=== PATIENT | female | born 1985 | race African-American/Black ===

== ENCOUNTER 2024-01-19 09:37 | Outpatient (AMB) | payer OTHER, MEDICAID, SELFPAY ==
--- NOTE | 2024-01-19 09:49 | HO.SPINEOV ---
Intake Visit Reasons: SI Joint Pain Intake Note: Ms. Mohan is here today c/o Left sided back and leg pain. 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 HPI: This 38-year-old female developed left-sided back pain in 2006. This progressed to a severe left-sided pain over the left SI joint that can radiate into her left leg into the ankle. She received many epidural steroid injections without ineffective. She did have an SI joint injection that provided 80% relief for 1 month. An SI joint belt gives no resolution of her pain. She denies weakness or numbness. She is unable to sit or drive a car due to pain. She is only able to lay on the right side in her bed. 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 SI joint provocative tests are positive on the left side. Straight leg raise produces pain on the left side of her back. No motor or sensory deficits. Radiological Studies: MRI of the lumbar spine done at [facility] shows mild degenerative disc disease L4-5 and L5-S1 without nerve root compression. Impression/Plan: This patient's clinical picture is compatible with left SI joint dysfunction. She has failed all forms of conservative treatments and is impaired by the symptoms. Therefore I offered her a left SI joint fusion. I discussed the medial to lateral approach and she wants to proceed. She will be scheduled accordingly. Thank you for allowing me to participate in your patients care. total time spent was 50 minutes in counseling ,coordination of plan, personal review of imaging, surgical decision making and subsequent plan Arpan Viera MD, PhD [facility] Trained Neurosurgeon Director, [facility] Coding Level of Care Code New Pt Level 4 (67356) Diagnoses Sacroiliac joint dysfunction of left side M53.3
== END 2024-01-19 10:33 | disposition home or self-care (01) ==
PROVIDERS: PCP Internal Medicine; Referring Provider Physician Assistant; Visit Provider Neurological Surgery
DX: M53.3 Sacrococcygeal disorders, not elsewhere classified (principal)
CPT/HCPCS: 99204

== ENCOUNTER → 2024-01-19 09:37 | Outpatient (BNVA) | payer OTHER, MEDICAID, SELFPAY | PROVIDERS: PCP Internal Medicine; Visit Provider Neurological Surgery ==

== ENCOUNTER 2024-03-13 14:02 | Outpatient (AMB) | payer OTHER, MEDICAID, SELFPAY ==
--- NOTE | 2024-03-13 14:36 | A.SPINEOV_ITS ---
Intake Visit Reasons: f/up radiating pain Intake Note: Mr. Mohan is here to f/u on low back pain. Internal Medicine Hospitalist Required: No Allergies No Known Allergies Allergy (Verified 01/19/24 09:50) Assessment & Plan Assessment & Plan (1) Sacroiliac joint dysfunction of left side: Code(s): M53.3 - Sacrococcygeal disorders, not elsewhere classified Category: Medical Plan Beatris comes in today for a subsequent evaluation after having her left-sided SI joint fusion canceled due to insurance denial. She was seen in clinic today and reports continued worsening left SI joint pain. She reports being in agony throughout the day and having significant restriction of her activities of daily living as a result of this pain. To clarify she does not have a radicular pain, but has a pain that is more well isolated to the left SI joint, which may extend toward the hip / thigh but does not radiate in a radicular manner. She is justifiably upset after being denied for the surgery which was indicated after evaluation by our attending neurosurgeon Dr. Viera who is the spine [facility] trained director of neurosurgery at our facility. On examination today she has notable difficulty with ambulation predominantly favoring the right side. She has (+) left sided Aguilar finger test, (+) left sided gaenslens test, (+) left sided Sen's, (+) left sided SI joint compression test. We will attempt for re-admission after Beatris's evaluation today. If this office note does reach the approving insurance company, I would encouraged them to schedule a peer to peer with an actual neurosurgeon or spine surgeon if they would like to challenge our submission for this surgery and once again deny this patient for a surgery that will undoubtedly provide her with much needed relief. Inocente Viera MD,PhD [facility] Coding Level of Care Code Est Pt Level 2 (35034) Diagnoses Sacroiliac joint dysfunction of left side M53.3
== END 2024-03-13 15:02 | disposition home or self-care (01) ==
LOC: HO.HNS 14:03
PROVIDERS: PCP Internal Medicine; Visit Provider Physician Assistant
DX: M53.3 Sacrococcygeal disorders, not elsewhere classified (principal)
CPT/HCPCS: 99212

== ENCOUNTER → 2024-03-13 14:02 | Outpatient (BNVA) | payer OTHER, MEDICAID, SELFPAY | PROVIDERS: PCP Internal Medicine; Visit Provider Physician Assistant ==

== ENCOUNTER 2024-03-25 08:45 | Outpatient (AMB) | payer OTHER, MEDICAID, SELFPAY ==
--- NOTE | 2024-03-25 09:24 | HO.SPINEOV ---
Intake Visit Reasons: MRI f/up Intake Note: Ms. Mohan is here today to F/u on the results of her MRI. 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 We reviewed her MRI imaging during this visit which shows a generally unremarkable MRI. She does have a slight disc bulge at L5-S1 which is causing a little to no foraminal or central canal stenosis. Generally speaking it is an unremarkable lumbar MRI. The patient reports that she recently received insurance approval in the mail for her upcoming left SI joint fusion surgery. She is very excited about this and we discussed this as well. All of her questions were answered to the best of my ability. Beatris was given risk and benefits of surgery including but not limited to infection, hematoma, nerve injury, durotomy, weakness, bowel/bladder injury, persistent pain, as well as the option to continue with conservative treatment and patient wishes to proceed with surgery. They are aware they should stop NSAIDs 7 days prior to surgery. All questions were answered to the best of our ability. If there is anything about this patients medical history that we have overlooked or concerns you have about us proceeding with surgery we would appreciate any input you can offer. Inocente Viera MD,PhD [facility] Coding Level of Care Code Global (23170) Diagnoses Sacroiliac joint dysfunction of left side M53.3
== END 2024-03-25 09:44 | disposition home or self-care (01) ==
PROVIDERS: PCP Internal Medicine; Visit Provider Physician Assistant
DX: M53.3 Sacrococcygeal disorders, not elsewhere classified (principal)
CPT/HCPCS: 99213

== ENCOUNTER 2024-04-25 08:24 | Day surgery (SDC) | payer OTHER, MEDICAID, SELFPAY ==
[2024-04-22 15:24] VITALS: BMI 29.7
[2024-04-25] VITALS (11 sets, daily range): BP systolic 118–133; BP diastolic 60–84; PULSE 70–103; RESP 14–16; TEMP 36.1–36.9; O2SAT 97–100; BMI 28.0
[2024-04-25 09:11] LABS: UPreg QC Valid YES; Urine Pregnancy NEGATIVE (NEGATIVE)
--- NOTE | 2024-04-25 09:28 | P.CONAN_ITS ---
[facility] Active Problems Active Problems: All Active Problems Sacroiliac joint dysfunction of left side (Acute) Past Medical History Medical History DDD (degenerative disc disease), lumbosacral Depression Orthostatic hypotension Palpitations GERD (gastroesophageal reflux disease) Sacroiliac joint dysfunction of left side Functional capacity: independent ambulation Patient : No Family History Family history of problems with anesthesia: No Surgical History Surgical History Hx of wisdom tooth extraction Hx of section Hx of gastric bypass Social History Social History Are you a primary healthcare risk control consultant to a significant other at home: No Do you presently have visiting nurse or other home services: No Patient Tobacco Use Status: Never used Tobacco Use of substances other than those prescribed or required for medical reasons: No Have you been hit, kicked, punched, or otherwise hurt by someone within the past year? If so, by whom?: No Advance Directives: No Advance Directives Information Provided: Yes Recently lost weight without trying: No Nutrition Risks: No Nutritional Risk Patient : No Meds Allergies Allergy/AdvReac Type Severity Reaction Status Date / Time No Known Allergies Allergy Verified 04/25/24 09:21 Active Medications: Current Medications Lactated Ringer's (Lr) 1,000 mls @ 80 mls/hr IVCONT .[id number] [facility] Home Medications ?Medication ?Instructions ?Recorded ?Confirmed ?Last Taken ?Type acetaminophen 500 mg tablet 1,000 mg PO Q8H 04/22/24 04/22/24 Unknown History omeprazole 20 mg capsule,delayed 20 mg PO DAILY 04/22/24 04/22/24 Unknown History release sertraline 25 mg tablet 25 mg PO DAILY 04/22/24 04/22/24 Unknown History simethicone 80 mg chewable tablet 80 mg PO Q6H PRN gas pains 04/22/24 04/22/24 Unknown History gabapentin 400 mg capsule 400 mg PO TID 04/25/24 04/25/24 Unknown History Exam Height,Weight and Vital Signs: Height 5 ft 4 in Weight 73.936 kg Pertinent Lab Results Pertinent Lab Results: Laboratory Tests 04/25/24 09:05 Urine Test NEGATIVE Assessment and Plan Final Anesthetic Review Family History of Problems with Anesthesia: No
[2024-04-25] MEDS: Lactated Ringers 1,000 ML 80 ML IVCONT (09:32)
[2024-04-25] MEDS: Gabapentin 300 MG CAPSULE PO (09:32)
[2024-04-25] MEDS: methocarbamoL 750 MG TABLET PO (09:32)
--- NOTE | 2024-04-25 09:58 | MHC.SHP ---
Pre-Procedural Eval Section A - 24 Hr Update-Section A only Date of Service: 04/25/24 The patient is an INPATIENT: No Section B - Complete if H&P > 30 days Chief Complaint: Sacrococcygeal disorders, not elsewhere classified Details of Present Illness: Left SI joint pain Allergies: Allergies Allergy/AdvReac Type Severity Reaction Status Date / Time No Known Allergies Allergy Verified 04/25/24 09:21 Review of Systems Sugical H&P ROS: Negative: Constitution, Cardiovascular, Respiratory, Neurological, Psychiatric, Hem-Onc, Allergic/Immunologic, Gastrointestinal, Genitourinary, Musculoskeletal, Integumentary, Endocrine and Eyes/Ears/Nose/Throat Exam Surgical H&P Exam: Normal: HEENT, Normal: Heart, Normal: Lungs, Normal: Extremities, Normal: Abdomen, Normal: Skin and Normal: Neurological (Awake, alert) Plan Diagnosis/Plan: Unchanged I have reviewed the history and physical and performed a pertinent physical examination on my patient. No changes have occurred unless specified. Left SI joint fusion Time Spent With Patient Time: Total time managing care of this patient today ____ minutes.
--- NOTE | 2024-04-25 12:21 | P.DS_ITS ---
DS: Providers Provider Date of Service: 04/25/24 Primary care physician: Azeem Humphrey III, MD DS: Summary Time Attestation Discharge Coordination Time (in mins): 15 Quality: Safe Use of Opioids Does Pt have an Active Cancer Diagnosis on the Problem List?: No Quality: Stroke Does the patient have a stroke diagnosis?: No Physical Exam Vital Signs: Vital Signs: Last Vital Signs Temp 98.4 F 04/25/24 10:39 Pulse 85 04/25/24 10:39 Resp 14 04/25/24 10:39 BP 133/74 04/25/24 10:39 Pulse Ox 100 04/25/24 10:39 O2 Del Method Room Air 04/25/24 10:39 BMI result Body Mass Index 28.0 DS: Data Data Completed and Pending Labs on day of discharge: Laboratory Results - last 24 hr 04/25/24 09:05 Urine Test NEGATIVE Discharge Plan Discharge Patient Disposition: Home, Self-Care Referrals: Azeem Humphrey III, MD [Primary Care Provider] - 1 Week Discharge Medications: New oxycodone 5 mg tablet 5 mg PO Q6H PRN (Reason: pain) Qty: 30 0RF Rx Instructions: Partial Fill upon patient request. Continued acetaminophen 500 mg tablet 1,000 mg PO Q8H sertraline 25 mg tablet 25 mg PO DAILY omeprazole 20 mg capsule,delayed release(DR/EC) 20 mg PO DAILY simethicone 80 mg tablet,chewable 80 mg PO Q6H PRN (Reason: gas pains) gabapentin 400 mg capsule 400 mg PO TID Discharge Orders: Discharge Order (Routine); Ordered 04/25/24 Ordered By: Inocente Fritz Diet: Advance to usual diet Activity on Discharge: As tolerated Activity Restrictions/Additional Instructions: After your spinal surgery we ask you to observe the following restrictions/guidelines: Activity: It is normal to feel some discomfort as you increase your activity, but that will improve with time. We ask you avoid heavy lifting or acitivities that cause pain. As a general rule, 8lbs is a safe limit for lifting right after surgery. Walk as much as you feel comfortable but not to exhaustion. You will feel extra tired the first few days after surgery. Stay well hydrated. It is OK to walk up and down stairs You may return to driving when you are off narcotics (such as vicodin, oxycodone, dilaudid, etc), and you are back to normal functional capacity. If you have any concerns please check with office before driving. Return to work is specific to each patient and each surgery, so please speak with your doctor/PA at first follow up. Please bring paperwork such as FMLA at that time if you need it filled out. Medications: We recommend you take 1,000mg Tylenol every 8 hours for the first few weeks after surgery, if you do not have any liver issues and can tolerate this medication. Do not exceed 4,000mg daily. We will give you a short supply of narcotics after surgery (usually one weeks worth). If you need more please call the office but do not use more than prescribed. You will need to give our office 48 hours notice if you need narcotics refilled and we do not fill narcotics on weekends or evenings. If you are on a narcotic, it is a good idea to take a stool softener such as colace or senna to avoid constipation If you take blood thinner such as aspirin, Plavix, Coumadin, Effient, Eliquis etc for conditions such as Afib, DVT, Pulmonary embolus, coronary disease, stents etc please speak with your surgeon about specific details as to when you can resume these medications. You can resume NSAIDs on post op day 1 (eg: Motrin, Naproxen, etc). Follow up: Please call the office, , after surgery to arrange a 3 week follow up for wound check. Wound Care: You may remove your dressing on the first day after surgery. ?You may ?leave open to air. Please do not remove the steri strips underneath. they will fall off on their own in one week. IT IS NORMAL FOR THE WOUND TO OOZE OR BE BLOODY FOR A FEW DAYS AFTER SURGERY. ?IF THIS HAPPENS JUST PLACE NEW DRESSING OVER IT TO AVOID STAINING CLOTHES. You may shower on post op day # 1 We ask that you do not let the water soak the wound. If it does get wet, just towel dry lightly. Please do not scrub your incision or place any type of chemical/ointment on the wound. No tub baths, pools or jacuzzis for one month. If you have any leaking or redness from your wound, or fevers, please call the office. Print Language: Mongolian
--- NOTE | 2024-04-25 12:28 | W.PM.OPN ---
Operative Note Operative Note Date of Service: 04/25/24 Narrative: Preoperative diagnosis: Left sacroiliitis Postoperative diagnosis: Same Operative procedure: Left sacroiliac joint fusion with 1 allograft implant Surgeon: Arpan Viera MD, PhD Parachute Cushion Installer: Matt Hernandez PA-C Anesthesia: General Description of procedure: The patient is suffering from left SI joint dysfunction refractory to nonoperative management. The patient has tried and failed all forms of conservative manage med except for an excellent short-term response to a sacroiliac joint injection. The sacroiliac joint was confirmed to be the pain generator after repeated pain blocks. The patient was offered surgical treatment with fixation and arthrodesis of the SI joint. The patient was brought to the operating room and endotracheally intubated. The patient was turned in a prone position on Shaheen spine table. Prepping and draping was done followed by a time-out. A C-arm was alternately positioned for lateral, oblique oblique and pelvic inlet and outlet projections througout the procedure. Skin markings were made for the anticipated position of the implant. A 2.5 cm longitudinal skin incision was made. A guide pin was inserted in an outlet oblique image for guidance follow-up insertion of dilator and working cannula. This was secured by placing an anchor pin into the ilium. Consideration was taken to cut channels utilizing a series of drills for decortication and internal fixation device placement. The implant was inserted such that it passed through the ilium, across the sacroiliac joint and into the sacrum, thus transfixing the sacroiliac joint. Proper positioning was confirmed on lateral fluoroscopy. The implant was packed with autologous bone collected from remain of the sacrum and ilium. Additional graft material was inserted into the channel void following the implant. The instruments were withdrawn. Upon completion, final images were obtained that showed a satisfactory position of the implant. Hemostasis was done. The incision was closed with an 0 Vicryl to fashion a 3-0 Vicryl subdermal layer after injecting Marcaine. Dermabond was used to approximate the surgeon. All sponge and needle counts were correct. Patient was extubated and transported in a stable condition to recovery room. Estimated blood loss: 40 mL Complications: None Disposition: Discharge to home
[2024-04-25] MEDS: oxyCODONE HCl Immed Release 5 MG TABLET PO (13:48)
[2024-04-25] MEDS: fentaNYL citrate/PF 100 MCG/2 ML VIAL 25 MCG IVPUSH (13:49)
== END 2024-04-25 14:49 | disposition home or self-care (01) ==
PROVIDERS: Anesthesiology; PCP Internal Medicine; Visit Provider Neurological Surgery
PROC: (CPT 27278; principal; 2024-04-25 11:30)
DX: M46.1 Sacroiliitis, not elsewhere classified (principal); M53.3 Sacrococcygeal disorders, not elsewhere classified; M51.372 Other intervertebral disc degeneration, lumbosacral region with discogenic back pain and lower extremity pain; M54.50 Low back pain, unspecified; M79.605 Pain in left leg; I95.1 Orthostatic hypotension; F32.A Depression, unspecified; Z79.899 Other long term (current) drug therapy; Z98.84 Bariatric surgery status
CPT/HCPCS: 27278; 81025; C1713; J0131; J0690; J1100; J1596; J1885; J2003; J2250; J2371; J2405; J2704; J3010; L8699

== ENCOUNTER → 2024-04-25 08:24 | Outpatient (BNV) | payer OTHER, MEDICAID, SELFPAY | PROVIDERS: PCP Internal Medicine; Visit Provider Physician Assistant | DX: M46.1 Sacroiliitis, not elsewhere classified (principal) | CPT/HCPCS: 27279; 99499 ==

== ENCOUNTER 2024-05-20 09:10 | Outpatient (AMB) | payer OTHER, MEDICAID, SELFPAY ==
--- NOTE | 2024-05-20 09:17 | A.SPINEOV_ITS ---
Intake Visit Reasons: 1st post op Intake Note: Ms. Mohan is here today for her 1st post op. Biologics Specialist Required: No Allergies No Known Allergies Allergy (Verified 07/01/24 11:50) Assessment & Plan Assessment & Plan (1) Sacroiliac joint dysfunction of left side: Code(s): M53.3 - Sacrococcygeal disorders, not elsewhere classified Category: Medical Plan Procedure: left SI joint fusion Beatris comes in today for her 1st postoperative visit. To recap she was previously seen in clinic for severe left-sided pain over the left SI joint that can radiate into her left leg into the ankle. She reports the pain has significantly reduced since her surgery. She is still having some trouble with full weight-bearing on the left side, and continues to use her cane intermittently but states her symptoms are overall much better than they were prior to surgery. She has been completing her ADLs without issue, but does still have some trouble completing stairs. We discussed the postoperative healing course, and I answered all of her questions to the best of my ability. No new neurological deficits. The patient ambulates well with the assistance of a cane. Her posterior incision site appears closed, well healing with no signs of drainage. There is still some edema underneath the incision site, but this is most likely due to postoperative inflammation. I believe lower we will begin feeling better as the weeks progress. I would like to see her again in 6 weeks and obtain a set of x-rays to review with her. Inocente Viera MD,PhD [facility] Orders: Orders XR sacroiliac joint 1-2V 05/20/24 M53.3 - Sacrococcygeal disorders, not elsewhere classified Coding Level of Care Code Global (52606) Diagnoses Sacroiliac joint dysfunction of left side M53.3
== END 2024-05-20 09:43 | disposition home or self-care (01) ==
PROVIDERS: PCP Internal Medicine; Visit Provider Physician Assistant
DX: M53.3 Sacrococcygeal disorders, not elsewhere classified (principal)
CPT/HCPCS: 99024

== ENCOUNTER 2024-05-20 09:10 | Outpatient (REF) | payer OTHER, MEDICAID, SELFPAY | END 2024-05-20 09:11 | disposition home or self-care (01) | LOC: HO.HOSX 09:10 | PROVIDERS: PCP Internal Medicine; Visit Provider Physician Assistant | DX: Z13.89 Encounter for screening for other disorder (principal) ==

== ENCOUNTER 2024-07-01 11:31 | Outpatient (AMB) | payer OTHER, MEDICAID, SELFPAY ==
--- NOTE | 2024-07-01 11:06 | HO.SPINEOV ---
Intake Visit Reasons: 2nd post op with Xray Intake Note: Ms. Mohan is here today for her 2nd post op with x-rays. 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 Viera. She reports she was doing very well during the interval since our last visit, but unfortunately in the last couple of weeks she has developed fairly significant left knee pain, at times will feel her knee completely lock up and then pop when she tries to straighten it. Because of this she has been ambulating with the assistance of a cane. She is also having quite a bit of centralized low back pain. She reports that this pain is different than the pain she had prior to her SI joint fusion surgery. Unfortunately, her x-ray imaging done today is not loading in the computer. I will review it as soon as I am able to an update this note accordingly. No new neurological deficits. The patient ambulates well and rises from a seated position without difficulty. Her posterior incision site is closed and well healed. I believe that Beatris is likely suffering from some kind of issue with her left knee, and due to her difference in ambulation as a result of this she may be developing axial low back pain. Importantly, she no longer has pain near the SI joint area. I will send her a referral for orthopedics to evaluate her left knee. If she can correct her gait, her low back pain may resolve on its own. Inocente Viera MD,PhD [facility] Orders: Referrals Orthopedics Referral M25.562 - Pain in left knee Coding Level of Care Code Global (51364) Diagnoses Sacroiliac joint dysfunction of left side M53.3
--- OUTSIDE RECORDS SUMMARY | 2024-07-01 13:17 | XMS_ITS | Clinical Summary ---
Author Organization [facility] Address [address] [place] [address] Phone Care Team Providers Care Manager Meat Name Role Phone Azeem Humhprey MD Primary Care Provider [phone] Allergies No known active allergies Medications ondansetron ODT (ZOFRAN-ODT) 4 mg disintegrating tablet DISSOLVE 1 TABLET UNDER THE TONGUE EVERY 8 HOURS NEEDED FOR NAUSEA FOR UP TO 7 DAYS. 4 Active simethicone (MYLICON) 80 mg chewable tablet Take 1 Tablet by mouth every 6 hours as needed for Flatulence for up to 30 days. 4 Active acetaminophen (TYLENOL) 500 mg tablet Take 2 Tablets by mouth every 8 hours for 30 days. 4 Active blood sugar diagnostic (FreeStyle Lite Strips) test strip To check BS once daily E11.9 4 Active omeprazole OTC (PriLOSEC OTC) 20 mg EC tablet Take 1 Tablet by mouth 3 times daily. Active gabapentin (NEURONTIN) 300 mg capsule Take 1 Capsule by mouth 2 times daily. Active omeprazole (PriLOSEC) [address] capsule TAKE 1 CAPSULE BY MOUTH DAILY FOR 360 DAYS. 90 capsule 1 4 Active ergocalciferol (VITAMIN D-2) 1,250 mcg (50,000 unit) capsule Take 1 capsule (50,000 Units total) by mouth 1 (one) time per week. 4 each 11 4 025 Active sertraline (ZOLOFT) 25 mg tablet TAKE 1 TABLET BY MOUTH EVERY DAY 90 tablet 1 4 Active diclofenac (VOLTAREN) 1 % topical gel APPLY 1 G TOPICALLY 4 TIMES DAILY NEEDED (PAIN). 100 g 3 5 Active Active Problems Problem Noted Date Diagnosed Date Bariatric surgery status 03/26/2024 Overweight (BMI 25.0-29.9) 03/26/2024 Orthostatic hypotension 12/19/2023 Overview (02/13/2024): Orthostatic hypotension Palpitations 12/19/2023 Overview (02/13/2024): Palpitations Sacroiliitis 12/19/2023 Class 1 obesity with body ma ss index (BMI) of 31.0 to 31.9 in adult 04/18/2023 DDD (degenerative disc disease), lumbosacral 04/2017 Overview (02/13/2024): L4-5, L5-S1 Depression 08/17/2016 Hidradenitis suppurativa 08/17/2016 Myofascial muscle pain 08/17/2016 Encounters Date Type Department Care Team Description 04/09/2024 8:30 AM EST Office Visit Adult Medicine [address] [phone] Noah Rose PA Routine history and physical examination of adult (Primary Dx); Type 2 diabetes mellitus without complication, without long-term current use of insulin (CMS/HCC); Sacroiliitis (CMS/HCC); Need for tetanus, diphtheria, and acellular pertussis (Tdap) vaccine; Depression, unspecified depression type; Gastroesophageal reflux disease, unspecified whether esophagitis present; S/P bariatric surgery from Last 3 Months Immunizations Name Administration Dates Next Due DTP 03/22/1986, 5,02/20/1984,11/19 Hepatitis B (Wqdseha-F-Pbybw , Recombivax HB-Adult) 19yo and older 04/12/2011 MMR, measles mumps and rubel la Live (Priorix; M-M-R II) 12mo and older 11/01/1984 Meningococcal MCV4P 04/12/2011 Moderna (age 6mo & older) Bi valent, COVID-19, 0.5 mL or 0.25 mL dosage 04/19/2022 Moderna SARS-CoV-2 COVID-19, mRNA, LNP-S, preservative free 12/26/2021,01/23/2021,12/26/2020 OPV 03/22/1986, 5,02/20/1984,11/19 PPD Test 08/20/1984 Tdap Tetanus diptheria acell ular pertussis (Boostrix; Adacel) 7yo and older 04/09/2024,12/25/2007 Surgical History Surgery Date Site/Laterality Comments WISDOM TOOTH EXTRACTION 2013 Bilateral PROCEDURE: HISTORICAL WISDOM TEETH EXTRACTION; COMMENT: x4, no excess bleeding SECTION PROCEDURE: HISTORICAL DELIVERY Medical History Medical History Date Comments Depression 08/17/2016 DX:Depression Hidradenitis suppurativa 08/17/2016 DX:Hidr adenitis suppurativa; COMMENT: Dr. Matheus Smith Myofacial muscle pain 08/17/2016 DX:Myofaci al muscle pain DDD (degenerative disc disea se), lumbosacral 08/17/2016 DX:DDD (degenerative disc di sease), lumbosacral; COMMENT: L4-5, L5-S1 Arthritis DX:Arthritis Anxiety and depression DX:Anxiet y and depression DM (diabetes mellitus) ([facility]) DX:DM (diabetes mellitus) ([facility]) Difficulty balancing DX:Difficul ty balancing Loss of sensation DX:Loss of sen sation Family History Medical History Relation Name Comments Hypertension Father Hypertension Mother Prostate cancer Uncle maternal - m ets to bone Relation Name Status Comments Brother Alive 1 Father Alive Mother Alive Sister Alive 4 Uncle Social History Tobacco Use Types Packs/Day Years Used Date Smoking Tobacco: Never Smokeless Tobacco: Never Tobacco Cessation:Counseling Given: Not Answered Alcohol Use Standard Drinks/Week Comments Yes 0 (1 standard drink = 0.6 oz pur e alcohol) social Housing Instability Answer Date Recorde d Are you worried that in the next 2 months you may not have stable housing? No 04/04/2024 Food Access & Nutrition Answer Date Rec orded Do you have access to a vari ety of food including fruits and vegetables? No 04/04/2024 Health Literacy Answer Date Recorded How often do you need to hav e someone help you when you read instructions, pamphlets, or other written material from your doctor or pharmacy? Never 04/04/2024 Caregiver: How often do you need to have someone help you when you read instructions, pamphlets, or other written material from your doctor or pharmacy? Not on file 04/04/2024 Financial Risk Answer Date Recorded How hard is it for you to pa y for the very basics like food, housing, medical care, and air conditioning / heating? Very hard 04/04/2024 Transportation Answer Date Recorded Has the lack of transportati on kept you from meetings, work, or from getting things needed for daily living? No Has the lack of transportati on kept you from medical appointments or from getting medications? No 04/04/2024 Social Isolation Answer Date Recorded How often do you feel lonely or isolated from th ose around you? Often 04/04/2024 Food Risk Answer Date Recorded Within the past 12 months we worried whether our food would run out before we got money to buy more. Never true 04/04/2024 Within the past 12 months th e food we bought just didn't last and we didn't have money to get more. Never true 04/04/2024 Dependent Care Answer Date Recorded Do you need help finding or paying for care for your loved ones. For example, child care aide or elderly care for an older adult? No 04/04/2024 Education Answer Date Recorded Do you think completing more education or training, like finishing a GED, going to college, or learning a trade, would be helpful for you? N/A 04/04/2024 Employment and Income Answer Date Recor ded During the last four weeks, have you been actively looking for work? No 04/04/2024 Living Situation Answer Date Recorded What is your living situation? 1 06/04/2023 Comments No Sex and Gender Information Value Date Recorded Sex Assigned at Not on file Legal Sex Female 4:43 AM EST Gender Identity Not on file Sexual Orientation Not on file Obstetrics History Last Filed Vital Signs Vital Sign Reading Time Taken Comments Blood Pressure 122/76 04/09/2024 8:11 AM EST Pulse 86 04/09/2024 8:11 AM EST Temperature 36.3 ??C (97.4 ??F) 04/09/2024 8:11 AM ES T Respiratory Rate 20 03/19/2024 12:05 PM EST Oxygen Saturation 97% 04/09/2024 8:11 AM EST Inhaled Oxygen Concentration - - Weight 75.9 kg (167 lb 6.4 oz) 04/09/2024 8:11 A M EST Height 162.6 cm (5' 4.02 ) 04/09/2024 8:11 AM ES T Body Mass Index 28.72 04/09/2024 8:11 AM EST Plan of Treatment Upcoming Encounters Date Type Department Care Team (Late st Contact Info) Description 07/02/2024 8:45 AM EST Office Visit Bariatric Surgery - [place] [address] [phone] Dee Dee Tian PA [address] [address] 08/27/2024 10:55 AM EDT Appointment Radiology Department - [address] [phone] 10/11/2024 9:45 AM EDT Office Visit Adult Medicine [address] [phone] Azeem Humphrey MD [address] [place] [phone] Health Maintenance Due Date Last Done Comments Diabetes: Annual Foot Exam 07/11/1993 Diabetes: Annual Retina Eye Exam 07/11/1993 Pneumococcal Vaccine: Pediatrics (0 to 5 Years) and At-Risk Patients (6 to 64 Years) (1 of 2 - PCV) 07/11/2002 Hepatitis B Vaccines (2 of 3 - 19+ 3-dose series) 05/10/2011 04/12/2011 HIV Screening 04/10/2022 Hepatitis C Screening 04/10/2022 COVID-19 Vaccine ( season) 2024 04/19/2022, 12/26/2021, 01/23/2021, Additional history exists Diabetes: Annual Urine Albumin-Creatinine Ratio (uACR) 02/15/2024 08/15/2022 Diabetes: Blood Sugar Control Test (HGBA1C) 11/01/2024 05/03/2024, 12/19/2023, 12/19/2023 Diabetes: Annual GFR (Glomerular Filtration Rate) 03/26/2025 03/26/2024, 12/19/2023, 12/19/2023 Depression Screening 04/04/2025 04/04/2024 Social Influencers of Health Screening 04/04/2025 04/04/2024 Cervical Cancer Screening: Pap Smear 08/02/2025 08/02/2022 Breast Cancer Screening 08/22/2025 08/23/2023 Cholesterol Screening (Lipid Panel) 05/03/2029 05/03/2024, 03/02/2023 DTaP,Tdap,and Td Vaccines (7 - Td or Tdap) 04/09/2034 04/09/2024, 12/25/2007, 03/22/1986, Additional history exists MMR Vaccines Completed 11/01/1984 IPV Vaccines Completed 03/22/1986, 06/08, 02/20/1984, Additional history exists Meningococcal ACWY Vaccine Aged Out 04/12/2011 N o longer eligible based on patient's age to complete this topic HIB Vaccines Aged Out No longer eligi ble based on patient's age to complete this topic HPV Vaccines Aged Out No longer eligi ble based on patient's age to complete this topic Hepatitis A Vaccines Aged Out No long er eligible based on patient's age to complete this topic Influenza Vaccine Discontinued Meningococcal B Vacine Aged Out No lo nger eligible based on patient's age to complete this topic RSV Immunization Patients Under 20 months Aged Out No longer eligible based on patient's age to complete this topic Varicella Vaccines Aged Out No longer eligible based on patient's age to complete this topic Procedures Procedure Name Priority Date/Time Associated Diagnosis Comments HEMOGLOBIN A1C Routine 05/03/2024 8:09 AM EST Type 2 diabetes mellitus without complication, without long-term current use of insulin ([facility]) LIPID PANEL WITH REFLEX TO DIRECT LDL Routine 05/03/2024 8:09 AM EST Routine history and physical examination of adult COMPLETE BLOOD COUNT Routine 05/03/2024 8:09 AM EST Routine history and physical examination of adult COMPREHENSIVE METABOLIC PANEL Routine 03/26/2024 9:01 AM EST Overweight (BMI 25.0-29.9) Bariatric surgery status MADDY SCREENING DIGITAL Routine 08/23/2023 2:25 PM EDT Encounter for screening mammogram for malignant neoplasm of breast URINE ALBUMIN CREATININE RATIO Routine 08/15/2022 PAP SMEAR Routine 08/02/2022 from Last 3 Months or Most Recently Relevant to Health Maintenance Results * Lipid panel with reflex to direct LDL (05/03/2024 8:09 AM EST) Cholesterol 172 0 - 200 mg/dL LAB CHEMISTRY METHOD 05/03/2024 10:16 AM [facility] Triglycerides 90 0 - 150 mg/dL LAB CHEMISTRY METHOD 05/03/2024 10:16 AM [facility] HDL 59 >=40 mg/dL LAB CHEMISTRY METHOD 05/03/2024 10:16 AM [facility] LDL Calculated 95 0 - 100 mg/dL LAB CHEMISTRY METHOD 05/03/2024 10:16 AM [facility] VLDL Cholesterol Olvin 18 mg/dL LAB CHEMISTRY METHOD 05/03/2024 10:16 AM [facility] Non HDL Chol. (LDL+VLDL) 113 <145 mg/dL LAB CHEMISTRY METHOD 05/03/2024 10:16 AM [facility] Chol/HDL Ratio 2.9 0.0 - 4.4 LAB CHEMISTRY METHOD 05/03/2024 10:16 AM [facility] Blood Venous blood specimen / Unknown Venipuncture / Unknown 05/03/2024 8:09 AM EST 05/03/2024 8:09 AM EST us Noah CARRERA LAB BLOOD ORDERABLES Fi nal Result [facility] [address] [place] [address], [place] [phone] * Complete blood count (05/03/2024 8:09 AM EST) WBC 8.3 4.8 - 10.8 K/mcL LAB HEMETOLOGY METHOD 05/03/2024 10:11 AM [facility] RBC 4.80 3.80 - 4.80 M/mcL LAB HEMETOLOGY METHOD 05/03/2024 10:11 AM [facility] Hemoglobin 14.5 11.5 - 16.0 g/dL LAB HEMETOLOGY METHOD 05/03/2024 10:11 AM [facility] Hematocrit 45.2 35.0 - 47.0 % LAB HEMETOLOGY METHOD 05/03/2024 10:11 AM [facility] MCV 95.0 79.0 - 98.0 FL LAB HEMETOLOGY METHOD 05/03/2024 10:11 AM [facility] MCH 30.5 27.0 - 32.0 pcg LAB HEMETOLOGY METHOD 05/03/2024 10:11 AM [facility] MCHC 32.1 32.0 - 37.0 g/dL LAB HEMETOLOGY METHOD 05/03/2024 10:11 AM [facility] RDW 13.1 11.0 - 15.0 % LAB HEMETOLOGY METHOD 05/03/2024 10:11 AM [facility] Platelets 289 130 - 400 K/mcL LAB HEMETOLOGY METHOD 05/03/2024 10:11 AM [facility] MPV 9.2 7.0 - 11.0 FL LAB HEMETOLOGY METHOD 05/03/2024 10:11 AM EST [facility] NRBC 0.0 <1.0 % LAB HEMETOLOGY METHOD 05/03/2024 10:11 AM EST [facility] NRBC Absolute 0.00 <0.10 K/mcL LAB HEMETOLOGY METHOD 05/03/2024 10:11 AM EST [facility] Blood Venous blood specimen / Unknown Venipuncture / Unknown 05/03/2024 8:09 AM EST 05/03/2024 8:09 AM EST Noah CARRERA LAB BLOOD ORDERABLES Fi nal Result Performing Organization Address City/[facility]/ZIP Co de Phone Number [facility] [address] [place] [address], [place] [phone] * Hemoglobin A1c (05/03/2024 8:09 AM EST) Pathologist [facility] Hemoglobin A1C 5.4 <6.5 % LAB CHEMISTRY METHOD 05/03/2024 12:26 PM EST [facility] Mean Bld Glu Estim. 108 mg/dL LAB CHEMISTRY METHOD 05/03/2024 12:26 PM EST [facility] Blood Venous blood specimen / Unknown Venipuncture / Unknown 05/03/2024 8:09 AM EST 05/03/2024 8:09 AM EST Noah CARRERA LAB BLOOD ORDERABLES Fi nal Result [facility] [address] [place] [address], [place] [phone] * Comprehensive metabolic panel (03/26/2024 9:01 AM EST) Sodium 142 133 - 145 mmol/L LAB CHEMISTRY METHOD 03/26/2024 11:02 AM EST [facility] Potassium 4.0 3.5 - 5.5 mmol/L LAB CHEMISTRY METHOD 03/26/2024 11:02 AM [facility] Chloride 110 96 - 110 mmol/L LAB CHEMISTRY METHOD 03/26/2024 11:02 AM [facility] CO2 26 21 - 32 mmol/L LAB CHEMISTRY METHOD 03/26/2024 11:02 AM [facility] Anion Gap 6 3 - 11 LAB CHEMISTRY METHOD 03/26/2024 11:02 AM [facility] Glucose 95 70 - 100 mg/dL LAB CHEMISTRY METHOD 03/26/2024 11:02 AM [facility] BUN 9 5 - 25 mg/dL LAB CHEMISTRY METHOD 03/26/2024 11:02 AM [facility] Creatinine 0.80 0.50 - 1.10 mg/dL LAB CHEMISTRY METHOD 03/26/2024 11:02 AM [facility] eGFR 96 >=60 mL/min/1. 73m2 LAB CHEMISTRY METHOD 03/26/2024 11:02 AM [facility] Comment:Calculation based on the??Chronic Kidney Disease Epidemiology Collaboration (CKD-EPI) equation refit??without adjustment for race. BUN/Creatinine Ratio 11.3 LAB CHEMISTRY METHOD 03/26/2024 11:02 AM [facility] Calcium 10.1 8.5 - 10.5 mg/dL LAB CHEMISTRY METHOD 03/26/2024 11:02 AM [facility] AST (SGOT) 10 10 - 42 unit/L LAB CHEMISTRY METHOD 03/26/2024 11:02 AM [facility] ALT (SGPT) 14 10 - 60 unit/L LAB CHEMISTRY METHOD 03/26/2024 11:02 AM [facility] Alkaline Phosphatase 88 42 - 121 unit/L LAB CHEMISTRY METHOD 03/26/2024 11:02 AM [facility] Total Protein 6.8 6.0 - 8.0 g/dL LAB CHEMISTRY METHOD 03/26/2024 11:02 AM EST [facility] Albumin 3.8 3.2 - 5.0 g/dL LAB CHEMISTRY METHOD 03/26/2024 11:02 AM EST [facility] Total Bilirubin 0.6 0.0 - 1.4 mg/dL LAB CHEMISTRY METHOD 03/26/2024 11:02 AM EST [facility] Blood Venous blood specimen / Unknown Venipuncture / Unknown 03/26/2024 9:01 AM EST 03/26/2024 9:01 AM EST us Dee Dee CARRERA LAB BLOOD ORDERABLES Final R esult [facility] ([facility]) [facility] [address] [place] [address], * MADDY SCREENING DIGITAL (08/23/2023 2:25 PM EDT) Anatomical Region Laterality Modality Mammography 08/23/2023 7:26 AM EDT Narrative 08/23/2023 2:[address] [facility] Diagnostic Imaging Department [address] [place] [address] Patient: ??JOHANA MOHAN ?/Age/Sex: 1985 - - F Unit#: ??[id number] ? Location/Status: ??SPDIMAM/REG CLI ? Mnemonic/Ordering Site: ??DIGSC/SPMAM Ordering Physician: ??TERENCE SINGLETON SOLUTION DESIGN ENGINEER [facility] Screening Digital - 08/23/23 - 745 Report Status:Signed EXAM: [facility] Screening Digital EXAM DATE AND TIME: 08/23/2023 7:48 AM HISTORY: ??Screening. Baseline exam. COMPARISON: ??No comparison imaging. TECHNIQUE: Bilateral digital breast tomosynthesis was performed in the CC and MLO projections. Computer aided detection with [employer]™ [employer] 3D 3.1 was employed. TISSUE DENSITY: a. The breasts are almost entirely fatty. FINDINGS: An 11 mm circumscribed, bilobed nodule is seen in the middle 2:00 position of the left breast, approximately 10 cm from the nipple, fairly close to the skin line. This may represent a lymph node. Targeted ultrasound is recommended for further assessment. No grouped microcalcifications or areas of architectural distortion are seen. The skin and vascularity are unremarkable. IMPRESSION: 1. 11 mm bilobed left breast nodule, for which targeted ultrasound is recommended. The patient will be called back. 2. No mammographic evidence of malignancy is seen in the right breast. BI-RADS: ??Category 0: Incomplete - Need Additional Imaging Evaluation RECOMMENDATION(S): 1: Ultrasound follow-up LEFT Dictating Physician: ??KACEY ZAFAR MD Electronically Signed by: ??KACEY ZAFAR MD Dic Date/Time: ??08/23/23 1423 Sign date/Time: ??08/23/23 1425 Procedure Note Kacey Zafar MD - 12/25/2023 [facility] Diagnostic Imaging Department [address] [place] [id number] Patient: JOHANA MOHAN./Age/Sex: 1985 - 38 - F Unit#: [id number] Location/Status: SPDIMAM/REG CLI Mnemonic/Ordering Site: [facility] Ordering Physician: TERENCE SINGLETON SOLUTION DESIGN ENGINEER [facility] Screening Digital - 08/23/23 - 0746 Report Status:Signed EXAM: [facility] Screening Digital EXAM DATE AND TIME: 08/23/2023 7:48 AM HISTORY: Screening. Baseline exam. COMPARISON: No comparison imaging. TECHNIQUE: Bilateral digital breast tomosynthesis was performed in the CCand MLO projections. Computer aided detection with [employer]™ [employer] 3D 3.1was employed. TISSUE DENSITY: a. The breasts are almost entirely fatty. FINDINGS: An 11 mm circumscribed, bilobed nodule is seen in the middle 2:00 positionof the left breast, approximately 10 cm from the nipple, fairly close to theskin line. This may represent a lymph node. Targeted ultrasound is recommendedfor further assessment. No grouped microcalcifications or areas of architectural distortion areseen. The skin and vascularity are unremarkable. IMPRESSION: 1. 11 mm bilobed left breast nodule, for which targeted ultrasound is recommended. The patient will be called back. 2. No mammographic evidence of malignancy is seen in the right breast. BI-RADS: Category 0: Incomplete - Need Additional Imaging Evaluation RECOMMENDATION(S): 1: Ultrasound follow-up LEFT Dictating Physician: KACEY ZAFAR MD Electronically Signed by: KACEY ZAFAR MD Dic Date/Time: 08/23/23 142 Sign date/Time: 08/23/23 142 us Patience Assobmo SOLUTION DESIGN ENGINEER IMG BI PROCEDURES Final Resu lt * HM Urine Albumin Creatinine Ratio (08/15/2022) Urine Albumin Creatinine Ratio Abstracted us Historical Provider HEALTH MAINTENANCE Final Result * Hm Pap Smear (08/02/2022) Pap smear No interpretation , Abstracted us Historical Provider HEALTH MAINTENANCE Final Result from Last 3 Months or Most Recently Relevant to Health Maintenance Insurance [facility] MEDICA[facility] - [place] Care Teams Manager Meat Relationship Specialty Start Date End Date Azeem Humphrey MD [address] [place] [phone] PCP - General Internal Medicine 03/14/24
== END 2024-07-01 12:09 | disposition home or self-care (01) ==
PROVIDERS: PCP Internal Medicine; Visit Provider Physician Assistant
DX: M53.3 Sacrococcygeal disorders, not elsewhere classified (principal)
CPT/HCPCS: 99024

== ENCOUNTER 2024-07-01 11:31 | Outpatient (REF) | payer OTHER, MEDICAID, SELFPAY ==
--- NOTE | ~2024-07-01 | XR_ITS ---
EXAMINATION: XR SACROILIAC JOINTS CLINICAL INFORMATION: M53.3 - Sacrococcygeal disorders, not elsewhere classified COMPARISON: None available. TECHNIQUE: 3 views of the sacroiliac joints FINDINGS: Sclerosis in the left and to a lesser extent right sacroiliac joints. No acute cortical disruption. There is a focal 1 cm calcification overlapping the upper left sacrum. XR/XR sacroiliac joint 1-2V IMPRESSION: No acute fracture. 1 cm calcification overlapping the left upper hemisacrum, unclear location. Electronically signed by: Siddharth Grace MD 07/02/2024 01:48 PM EST
== END 2024-07-01 11:32 | disposition home or self-care (01) ==
LOC: HO.HOSX 11:31
PROVIDERS: PCP Internal Medicine; Visit Provider Physician Assistant
DX: M53.3 Sacrococcygeal disorders, not elsewhere classified (principal)
CPT/HCPCS: 72200

== ENCOUNTER → 2024-07-01 11:40 | Outpatient (BNV) | payer OTHER, MEDICAID, SELFPAY | PROVIDERS: PCP Internal Medicine; Visit Provider Radiology Diagnostic Radiology | DX: M53.3 Sacrococcygeal disorders, not elsewhere classified (principal) | CPT/HCPCS: 72200 ==

== ENCOUNTER 2024-07-19 10:49 | Outpatient (AMB) | payer OTHER, MEDICAID, SELFPAY ==
--- NOTE | 2024-07-19 10:51 | A.SPINEOV_ITS ---
Intake Visit Reasons: LBP/R side leg pain Intake Note: Ms. Mohan is here today c/o right side Low back pain. Stock Checker Required: No Allergies No Known Allergies Allergy (Verified 07/01/24 11:50) Assessment & Plan Assessment & Plan (1) Lumbar radiculopathy: Code(s): M54.16 - Radiculopathy, lumbar region Category: Medical Plan Mrs Mohan came in today to discuss an issue that started about 2 weeks ago. She was doing well after surgery with the exception of some knee pain that she had developed. The knee pain was not related to the surgery but just happened to happen postoperatively so she was seen here about it. She is going to go to orthopedics to have that evaluated. Recently she has developed severe left leg pain starting in her left buttock going down the back of the left leg into the calf and the bottom of the foot. It does feel somewhat similar to the pain that she had before surgery. The pain had been gone for a number of months so she is not sure if it is exactly the same. She was started on some steroids and gabapentin. She has also been taking acetaminophen and nonsteroidal anti- inflammatories. The pain is quite uncomfortable when she is standing or walking and particularly bad at night. On exam she is uncomfortable, walking with a cane, positive straight leg raise at about 30 degrees. Decreased Achilles reflex on the left. Strength is normal. We discussed the possibility of getting an MRI to rule out a herniated disc which is high on the differential. However, with her insurance health [place], they will require 6 weeks of physical therapy before letting us obtain the MRI so I gave her a referral for that and told her to call me in about 4 weeks since the pain is still there we will order the MRI. Total amount of time spent in this visit was 20 minutes in discussion of symptoms, ordering imaging and subsequent plan of care Matt Viera MD,PhD [facility] Orders: Orders PT Evaluation and Treatment Today M54.16 - Radiculopathy, lumbar region Coding Level of Care Code Est Pt Level 3 (62103) Diagnoses Lumbar radiculopathy M54.16
--- OUTSIDE RECORDS SUMMARY | 2024-07-19 12:26 | XMS_ITS | Clinical Summary ---
Author Organization [facility] Address [address] [place] [address] Phone Care Team Providers Care Senior Rd Engineer Name Role Phone Azeem Humphrey MD Primary Care Provider Allergies No known active allergies Medications ondansetron [...] NEEDED (PAIN). 100 g 3 5 Active cyclobenzaprine (FLEXERIL) 5 mg tablet Take 1 tablet (5 mg total) by mouth 3 (three) times a day if needed for muscle spasms. Do not drive or operate machinery after taking this due to potential drowsiness. 30 tablet 5 025 Active predniSONE (DELTASONE) 20 mg tablet Take 3 tabs for 3 days, take 2 tabs for 3 days, take 1 tab for 3 days 18 tablet 5 Active Active Problems Problem Noted Date Diagnosed Date Bariatric surgery status 03/26/2024 Overweight (BMI 25.0-29.9) 03/26/2024 Orthostatic hypotension 12/19/2023 Overview (02/13/2024): Orthostatic hypotension Palpitations 12/19/2023 Overview (02/13/2024): Palpitations Sacroiliitis 12/19/2023 DDD (degenerative disc disease), lumbosacral 04/2017 Overview (02/13/2024): L4-5, L5-S1 Depression 08/17/2016 Hidradenitis suppurativa 08/17/2016 Myofascial muscle pain 08/17/2016 Resolved Problems Problem Noted Date Diagnosed Date Resolved Date Class 1 obesity with body ma ss index (BMI) of 31.0 to 31.9 in adult 04/18/2023 07/02/2024 Encounters Date Type Department Care Team Description 07/17/2024 11:00 AM EDT Office Visit Adult Medicine [address] [phone] Noah Rose PA Sacroiliitis (CMS/HCC) (Primary Dx) 07/17/2024 Telephone Adult Medicine [address] [phone] Azeem Humphrey MD Back Pain 07/10/2024 Telephone Adult Medicine [address] [phone] Azeem Humphrey MD Knee Pain 07/03/2024 12:30 PM EST Telemedicine Bariatric Surgery - [address] [place] [address] Overweight (BMI 25.0-29.9) (Primary Dx) 07/02/2024 8:45 AM EST Office Visit Bariatric Surgery - [address] [phone] Dee Dee Tian PA Overweight (BMI 25.0-29.9) (Primary Dx); Bariatric surgery status from Last 3 Months Immunizations Name Administration Dates Next Due DTP 03/22/1986, 5,02/20/1984,11/19 Hepatitis B (Fgafzkr-O-Wodcs , Recombivax HB-Adult) 19yo and older 04/12/2011 [...] DX:Anxiet y and depression DM (diabetes mellitus) ([facility]) DX:DM (diabetes mellitus) ([facility]) Difficulty balancing DX:Difficul ty balancing Loss of sensation DX:Loss of sen sation Class 1 obesity with body ma ss index (BMI) of 31.0 to 31.9 in adult 04/18/2023 Family History Medical History Relation Name Comments [...] for your loved ones. For example, child advocate or elderly care for an older adult? [...] Sign Reading Time Taken Comments Blood Pressure 114/66 07/17/2024 10:51 AM EDT Pulse 96 07/17/2024 10:51 AM EDT Temperature 36.7 ??C (98.1 ??F) 07/17/2024 10:51 AM E DT Respiratory Rate 20 03/19/2024 12:05 PM EST Oxygen Saturation 98% 07/17/2024 10:51 AM EDT Inhaled Oxygen Concentration - - Weight 72.6 kg (160 lb) 07/17/2024 10:51 AM EDT Height 162.6 cm (5' 4.02 ) 07/17/2024 10:51 AM E DT Body Mass Index 27.45 07/17/2024 10:51 AM EDT Plan of Treatment Upcoming Encounters Date Type Department Care Team (Late st Contact Info) Description 08/08/2024 8:15 AM EDT Office Visit Adult Medicine [address] [phone] Noah Rose PA [address] [place] [address] 08/27/2024 10:55 AM EDT Appointment Radiology Department [address] [phone] 09/24/2024 10:00 AM EDT Office Visit Bariatric Surgery - [place] [address] [phone] Dee Dee Tian PA [address] [address] 10/11/2024 9:45 AM EDT Office Visit Adult Medicine [address] [phone] Azeem Humphrey MD [address] [place] [address] 04/09/2025 9:00 AM EST Office Visit Adult [address] [phone] Azeem Humphrey MD [address] [place] [address] Health Maintenance Due Date Last Done Comments [...] Control Test (HGBA1C) 11/01/2024 05/03/2024, 12/19/2023, 12/19/2023 Social Influencers of Health Screening 04/04/2025 04/04/2024 Depression Screening 07/17/2025 07/17/2024 Diabetes: Annual GFR (Glomerular Filtration Rate) 07/17/2025 07/17/2024, 03/26/2024, 12/19/2023, Additional history exists Cervical Cancer Screening: Pap Smear 08/02/2025 08/02/2022 [...] Procedure Name Priority Date/Time Associated Diagnosis Comments COMPREHENSIVE METABOLIC PANEL Routine 07/17/2024 11:55 AM EDT Sacroiliitis (CMS/HCC) HEMOGLOBIN A1C Routine 05/03/2024 8:09 AM EST Type 2 diabetes mellitus without complication, without long-term current use of insulin (CMS/HCC) LIPID PANEL WITH REFLEX TO DIRECT LDL Routine 05/03/2024 8:09 AM EST Routine history and physical examination of adult COMPLETE BLOOD COUNT Routine 05/03/2024 8:09 AM EST Routine history and physical examination of adult MADDY SCREENING DIGITAL Routine 08/23/2023 2:25 PM EDT Encounter for screening mammogram for malignant neoplasm of breast URINE ALBUMIN CREATININE RATIO Routine 08/15/2022 HM PAP SMEAR Routine 08/02/2022 from Last 3 Months or Most Recently Relevant to Health Maintenance Results * (ABNORMAL) Comprehensive metabolic panel (07/17/2024 11:55 AM EDT) Sodium 139 133 - 145 mmol/L LAB CHEMISTRY METHOD 07/17/2024 2:05 PM [facility] Potassium 4.1 3.5 - 5.5 mmol/L LAB CHEMISTRY METHOD 07/17/2024 2:05 PM [facility] Chloride 110 96 - 110 mmol/L LAB CHEMISTRY METHOD 07/17/2024 2:05 PM [facility] CO2 22 21 - 32 mmol/L LAB CHEMISTRY METHOD 07/17/2024 2:05 PM [facility] Anion Gap 7 3 - 11 LAB CHEMISTRY METHOD 07/17/2024 2:05 PM [facility] Glucose 109(H) 70 - 100 mg/dL LAB CHEMISTRY METHOD 07/17/2024 2:05 PM [facility] BUN 5 5 - 25 mg/dL LAB CHEMISTRY METHOD 07/17/2024 2:05 PM [facility] Creatinine 0.83 0.50 - 1.10 mg/dL LAB CHEMISTRY METHOD 07/17/2024 2:05 PM [facility] eGFR 91 >=60 mL/min/1. 73m2 LAB CHEMISTRY METHOD 07/17/2024 2:05 PM [facility] Comment:Calculation based on the??Chronic Kidney Disease Epidemiology Collaboration (CKD-EPI) equation refit??without adjustment for race. BUN/Creatinine Ratio 6.0 LAB CHEMISTRY METHOD 07/17/2024 2:05 PM [facility] Calcium 10.7(H) 8.5 - 10.5 mg/dL LAB CHEMISTRY METHOD 07/17/2024 2:05 PM [facility] AST (SGOT) 16 10 - 42 unit/L LAB CHEMISTRY METHOD 07/17/2024 2:05 PM [facility] ALT (SGPT) 16 10 - 60 unit/L LAB CHEMISTRY METHOD 07/17/2024 2:05 PM [facility] Alkaline Phosphatase 113 42 - 121 unit/L LAB CHEMISTRY METHOD 07/17/2024 2:05 PM [facility] Total Protein 8.2(H) 6.0 - 8.0 g/dL LAB CHEMISTRY METHOD 07/17/2024 2:05 PM [facility] Albumin 4.3 3.2 - 5.0 g/dL LAB CHEMISTRY METHOD 07/17/2024 2:05 PM [facility] Total Bilirubin 0.7 0.0 - 1.4 mg/dL LAB CHEMISTRY METHOD 07/17/2024 2:05 PM [facility] Blood Venous blood specimen / Unknown Venipuncture / Unknown 07/17/2024 11:55 AM EDT 07/17/2024 11:55 AM EDT us Noah CARRERA LAB BLOOD ORDERABLES Fi nal Result [facility] [address] [place] [address], * Lipid panel with reflex to direct LDL (05/03/2024 8:09 AM EST) Cholesterol 172 0 - 200 mg/dL LAB CHEMISTRY METHOD 05/03/2024 10:16 AM [facility] Triglycerides 90 0 - 150 mg/dL LAB CHEMISTRY METHOD 05/03/2024 10:16 AM [facility] HDL 59 >=40 mg/dL LAB CHEMISTRY METHOD 05/03/2024 10:16 AM [facility] LDL Calculated 95 0 - 100 mg/dL LAB CHEMISTRY METHOD 05/03/2024 10:16 AM [facility] VLDL Cholesterol Olvin 18 mg/dL LAB CHEMISTRY METHOD 05/03/2024 10:16 AM [facility] Non HDL Chol. (LDL+VLDL) 113 <145 mg/dL LAB CHEMISTRY METHOD 05/03/2024 10:16 AM [facility] Chol/HDL Ratio 2.9 0.0 - 4.4 LAB CHEMISTRY METHOD 05/03/2024 10:16 AM [facility] Blood Venous blood specimen / Unknown Venipuncture / Unknown 05/03/2024 8:09 AM EST 05/03/2024 8:09 AM EST Noah CARRERA LAB BLOOD ORDERABLES Fi nal Result [facility] [address] [place] [address], * Complete blood count (05/03/2024 8:09 AM EST) [facility] WBC 8.3 4.8 - 10.8 K/mcL LAB HEMETOLOGY METHOD 05/03/2024 10:11 AM [facility] RBC 4.80 3.80 - 4.80 M/mcL LAB HEMETOLOGY METHOD 05/03/2024 10:11 AM [facility] Hemoglobin 14.5 11.5 - 16.0 g/dL LAB HEMETOLOGY METHOD 05/03/2024 10:11 AM [facility] Hematocrit 45.2 35.0 - 47.0 % LAB HEMETOLOGY METHOD 05/03/2024 10:11 AM [facility] MCV 95.0 79.0 - 98.0 FL LAB HEMETOLOGY METHOD 05/03/2024 10:11 AM [facility] MCH 30.5 27.0 - 32.0 pcg LAB HEMETOLOGY METHOD 05/03/2024 10:11 AM [facility] MCHC 32.1 32.0 - 37.0 g/dL LAB HEMETOLOGY METHOD 05/03/2024 10:11 AM [facility] RDW 13.1 11.0 - 15.0 % LAB HEMETOLOGY METHOD 05/03/2024 10:11 AM [facility] Platelets 289 130 - 400 K/mcL LAB HEMETOLOGY METHOD 05/03/2024 10:11 AM [facility] MPV 9.2 7.0 - 11.0 FL LAB HEMETOLOGY METHOD 05/03/2024 10:11 AM [facility] NRBC 0.0 <1.0 % LAB HEMETOLOGY METHOD 05/03/2024 10:11 AM [facility] NRBC Absolute 0.00 <0.10 K/mcL LAB HEMETOLOGY METHOD 05/03/2024 10:11 AM [facility] Blood Venous blood specimen / Unknown Venipuncture / Unknown 05/03/2024 8:09 AM EST 05/03/2024 8:09 AM EST us Noah CARRERA LAB BLOOD ORDERABLES Fi nal Result [facility] [address] [place] [address], * Hemoglobin A1c (05/03/2024 8:09 AM EST) Hemoglobin A1C 5.4 <6.5 % LAB CHEMISTRY METHOD 05/03/2024 12:26 PM EST [facility] Mean Bld Glu Estim. 108 mg/dL LAB CHEMISTRY METHOD 05/03/2024 12:26 PM EST [facility] Blood Venous blood specimen / Unknown Venipuncture / Unknown 05/03/2024 8:09 AM EST 05/03/2024 8:09 AM EST us Noah CARRERA LAB BLOOD ORDERABLES Fi nal Result [facility] [address] [place] [address], * MADDY SCREENING DIGITAL (08/23/2023 2:25 PM EDT) Anatomical Region Laterality Modality Mammography 08/23/2023 7:26 AM EDT Narrative 08/23/2023 2:25 PM EDT [facility] Diagnostic Imaging Department [address] [place] [address] Patient: ??JOHANA MOHAN ?/Age/Sex: 1985 - F Unit#: ??[id number] ? Location/Status: ??SPDIMAM/REG CLI ? Mnemonic/Ordering Site: ??DIGSC/SPMAM Ordering Physician: ??TERENCE SINGLETON ELECTRONICS INSTALLER [facility] Screening Digital - 08/23/23 - 745 Report Status:Signed EXAM: [facility] Screening Digital EXAM DATE AND TIME: 08/23/2023 7:48 AM HISTORY: ??Screening. Baseline exam. COMPARISON: ??No comparison imaging. TECHNIQUE: Bilateral digital breast tomosynthesis was performed in the CC and MLO projections. Computer aided detection with InSupply 3D 3.1 was employed. TISSUE DENSITY: a. [...] Procedure Note Kacey Zafar MD - 12/25/2023 [facility] Diagnostic Imaging Department [address] [place] [id number] Patient: JOHANA MOHAN./Age/Sex: 1985 - 38 - F Unit#: [id number] Location/Status: SPDIMAM/REG CLI Mnemonic/Ordering Site: [facility] Ordering Physician: TERENCE SINGLETON ELECTRONICS INSTALLER [facility] Screening Digital - 08/23/23 - 0746 Report Status:Signed EXAM: [facility] Screening Digital EXAM DATE AND TIME: 08/23/2023 7:48 AM HISTORY: Screening. Baseline exam. COMPARISON: No comparison imaging. TECHNIQUE: Bilateral digital breast tomosynthesis was performed in the CCand MLO projections. Computer aided detection with InSupply 3D 3.1was employed. TISSUE DENSITY: a. The [...] Sign date/Time: 08/23/23 142 us Patience Assobmo ELECTRONICS INSTALLER IMG BI PROCEDURES Final Resu lt * HM Urine Albumin Creatinine Ratio (08/15/2022) Urine Albumin Creatinine Ratio Abstracted us Historical Provider HEALTH MAINTENANCE Final Result * Hm Pap Smear (08/02/2022) Pap smear No interpretation , Abstracted us Historical Provider HEALTH MAINTENANCE Final Result from Last 3 Months or Most Recently Relevant to Health Maintenance Insurance [facility] MEDICAID - [place] Care Teams Senior Rd Engineer Relationship Specialty Start Date End Date Azeem Humphrey MD [address] [place] [id number] PCP - General Internal Medicine 03/14/24
--- OUTSIDE RECORDS SUMMARY | 2024-07-19 12:26 | XMS_ITS | Encounter Summary ---
Author Organization [facility] Address [address] [place] [address] Care Team Providers Care Central Sterile Tech Name Role Phone Azeem Humphrey MD Primary Care Provider [phone] Reason for Visit * Reason Comments Back Pain Radiates down LT leg Encounter Details Date Type Department Care Team (Late st Contact Info) Description 07/17/2024 11:00 AM EDT Office Visit Adult Medicine [address] [phone] Noah Rose PA [address] [place] [phone] Sacroiliitis (CMS/HCC) (Primary Dx) Social History Tobacco Use Types Packs/Day Years Used Date Smoking Tobacco: Never Smokeless Tobacco: Never Alcohol Use Standard Drinks/Week Comments Yes 0 [...] for your loved ones. For example, child life therapist or elderly care for an older adult? [...] on file Sexual Orientation Not on file documented as of this encounter Last Filed Vital Signs Vital Sign Reading Time Taken Comments Blood Pressure 114/66 07/17/2024 10:51 AM EDT Pulse 96 07/17/2024 10:51 AM EDT Temperature 36.7 ??C (98.1 ??F) 07/17/2024 10:51 AM E DT Respiratory Rate - - Oxygen Saturation 98% 07/17/2024 10:51 AM EDT Inhaled Oxygen Concentration - - Weight 72.6 kg (160 lb) 07/17/2024 10:51 AM EDT Height 162.6 cm (5' 4.02 ) 07/17/2024 10:51 AM E DT Body Mass Index 27.45 07/17/2024 10:51 AM EDT documented in this encounter Ordered Prescriptions Prescription Sig Dispense Quantity Refills Last Filled Start Date End Date predniSONE (DELTASONE) 20 mg tablet Take 3 tabs for 3 days, take 2 tabs for 3 days, take 1 tab for 3 days 18 tablet 07/17/2024 cyclobenzaprine (FLEXERIL) 5 mg tablet Take 1 tablet (5 mg total) by mouth 3 (three) times a day if needed for muscle spasms. Do not drive or operate machinery after taking this due to potential drowsiness. 30 tablet 07/17/2024 documented in this encounter Plan of Treatment Upcoming Encounters Date Type Department Care Team (Late st Contact Info) Description 08/08/2024 8:15 AM EDT Office Visit Adult Medicine [address] [phone] Noah Rose PA [address] [place] [address] 08/27/2024 10:55 AM EDT Appointment Radiology Department [address] [phone] 09/24/2024 10:00 AM EDT Office Visit Bariatric Surgery - [place] [address] [phone] Dee Dee Tian PA [address] [address] 10/11/2024 9:45 AM EDT Office Visit Adult Medicine [address] [phone] Azeem Humphrey MD [address] [place] [address] 04/09/2025 9:00 AM EST Office Visit Adult [facility] [address] [place] [address] Azeem Humphrey MD [address] [place] [phone] documented as of this encounter Results * (ABNORMAL) Comprehensive metabolic panel (07/17/2024 11:55 AM EDT) Sodium 139 133 - 145 mmol/L LAB CHEMISTRY METHOD 07/17/2024 2:05 PM [facility] Potassium 4.1 3.5 - 5.5 mmol/L LAB CHEMISTRY METHOD 07/17/2024 2:05 PM [facility] Chloride 110 96 - 110 mmol/L LAB CHEMISTRY METHOD 07/17/2024 2:05 PM [facility] CO2 22 21 - 32 mmol/L LAB CHEMISTRY METHOD 07/17/2024 2:05 PM [facility] Anion Gap 7 3 - 11 LAB CHEMISTRY METHOD 07/17/2024 2:05 PM [facility] Glucose 109(H) 70 - 100 mg/dL LAB CHEMISTRY METHOD 07/17/2024 2:05 PM [facility] BUN 5 5 - 25 mg/dL LAB CHEMISTRY METHOD 07/17/2024 2:05 PM [facility] Creatinine 0.83 0.50 - 1.10 mg/dL LAB CHEMISTRY METHOD 07/17/2024 2:05 PM [facility] eGFR 91 >=60 mL/min/1. 73m2 LAB CHEMISTRY METHOD 07/17/2024 2:05 PM [facility] Comment:Calculation based on the??Chronic Kidney Disease Epidemiology Collaboration (CKD-EPI) equation refit??without adjustment for race. BUN/Creatinine Ratio 6.0 LAB CHEMISTRY METHOD 07/17/2024 2:05 PM [facility] Calcium 10.7(H) 8.5 - 10.5 mg/dL LAB CHEMISTRY METHOD 07/17/2024 2:05 PM EDT [facility] AST (SGOT) 16 10 - 42 unit/L LAB CHEMISTRY METHOD 07/17/2024 2:05 PM EDT [facility] ALT (SGPT) 16 10 - 60 unit/L LAB CHEMISTRY METHOD 07/17/2024 2:05 PM EDT [facility] Alkaline Phosphatase 113 42 - 121 unit/L LAB CHEMISTRY METHOD 07/17/2024 2:05 PM EDT [facility] Total Protein 8.2(H) 6.0 - 8.0 g/dL LAB CHEMISTRY METHOD 07/17/2024 2:05 PM EDT [facility] Albumin 4.3 3.2 - 5.0 g/dL LAB CHEMISTRY METHOD 07/17/2024 2:05 PM EDT [facility] Total Bilirubin 0.7 0.0 - 1.4 mg/dL LAB CHEMISTRY METHOD 07/17/2024 2:05 PM EDT [facility] Blood Venous blood specimen / Unknown Venipuncture / Unknown 07/17/2024 11:55 AM EDT 07/17/2024 11:55 AM EDT us Noah CARRERA LAB BLOOD ORDERABLES Fi nal Result [facility] [address] [place] [address], documented in this encounter Visit Diagnoses Diagnosis Sacroiliitis (CMS/HCC)- Primary Sacroiliitis, not elsewhere classified documented in this encounter Additional Health Concerns Assessment Noted Time PHQ-9 Depression Total Score: 13 025 10:15 AM EDT documented as of this encounter Care Teams Central Sterile Tech Relationship Specialty Start Date End Date Azeem Humphrey MD [address] [place] [phone] PCP - General Internal Medicine 03/14/24 documented as of this encounter
--- OUTSIDE RECORDS SUMMARY | 2024-07-19 12:26 | XMS_ITS | Encounter Summary ---
Author Organization [facility] Address [address] [place] [address] Care Team Providers Care Vp Training Name Role Phone Azeem Humphrey MD Primary Care Provider [phone] Reason for Visit * Reason Onset Date Comments Knee Pain 07/10/2024 Encounter Details Date Type Department Care Team (Late st Contact Info) Description 07/10/2024 Telephone Adult Medicine [address] [phone] Azeem Humphrey MD [address] [place] [phone] Knee Pain Social History Tobacco Use Types Packs/Day Years [...] for your loved ones. For example, child caregiver or elderly care for an older adult? [...] on file documented as of this encounter Progress Notes * Anamaria Narayanan, NAVI - 07/10/2024 10:40 AM EST fyi Call to pt , spoke to pt She continues with pain her left knee Pain started end of May. Pt SIF infusion, for left sided back and leg pain She notified the spine special , [place]o [place], Referred to , ortho at [facility] Appt date is 08/22/24 She has done PT awhile ago, then referred for injections She is taking tylenol alternationg with ibu, Taking with food. a Booked appt not being seen until 08/08/24 Pt to continue med alternate heat and cold, Is there someway for pt to be worked in sooner.? * Cricket Fuller - 07/10/2024 10:01 AM EST Patient call requires triage: Symptoms patient is presenting: Patient called stating that she has been having pain in her left knee , states that it is now radiating down her knees and down her leg , would like to speak to nurse to get advice on what to do How long has patient had these symptoms?: A couple of weeks For ALL patients calling to schedule any appointment (routine, sick visit, follow up, consult, etc.) in the outpatient setting please ask the following questions: Do you have fever of higher than 101, sore throat with difficulty swallowing or severe shortness ofbreath? no If YES to any of these above symptoms, send a message to triage and do not book. Red dot. If no, an audio or video visit should be booked. Have you had close contact with someone with Coronavirus in the last 14 days? no Have you traveled abroad? no Have you traveled recently to another state outside of [place], [place], [place], [place], [place], [place], [place]? no o If yes, did you quarantine for 14 days or have a negative covid test? no If yes to any of the above, patient is not to be scheduled in office until after 14 day quarantine or negative covid test. If pain or injury related was it due to an accident at work or from a motor vehicle accident? If yes, date of accident/Injury: No If yes, gather 3rd alliance party insurance information Third Republican Information: not applicable PCP: Azeem Humphrey MD Payor: [facility] [employer] / Plan: [facility] [employer] / Product Type: *No Product type* / documented in this encounter Plan of Treatment Upcoming Encounters Date Type Department Care Team (Late st Contact Info) Description 08/08/2024 8:15 AM EDT Office Visit Adult Medicine [address] [phone] Noah Rose PA [address] [place] [address] 08/27/2024 10:55 AM EDT Appointment Radiology Department [address] [phone] 09/24/2024 10:00 AM EDT Office Visit Bariatric Surgery - [place] [address] [phone] Dee Dee Tian PA [address] [address] 10/11/2024 9:45 AM EDT Office Visit Adult [address] [phone] Azeem Humphrey MD [address] [place] [address] 04/09/2025 9:00 AM EST Office Visit Adult [address] [phone] Azeem Humphrey MD [address] [place] [address] documented as of this encounter Visit Diagnoses Not on filedocumented in this encounter Additional Health Concerns Assessment Noted Time PHQ-9 Depression Total Score: 7 04/04/20 24 6:53 PM EST documented as of this encounter Care Teams Vp Training Relationship Specialty Start Date End Date Azeem Humphrey MD [address] [place] [address] PCP - General Internal Medicine 03/14/24 documented as of this encounter
--- OUTSIDE RECORDS SUMMARY | 2024-07-19 12:26 | XMS_ITS | Encounter Summary ---
Author Organization [facility] Address [address] [place] [address] Care Team Providers Care Automatic Glove Turner And Former Name Role Phone Azeem Humphrey MD Primary Care Provider [phone] Reason for Visit * Reason Comments Obesity Encounter Details Date Type Department Care Team ([facility] st Contact Info) Description 07/03/2024 12:30 PM EST Telemedicine Bariatric Surgery - [place] 175 [facility] [address] [place] [phone] Fela Dillon, ARNOLDO [address] [address] Overweight (BMI 25.0-29.9) (Primary Dx) Social History Tobacco Use Types [...] care for your loved ones. For example, children's counselor or elderly care for an older adult? [...] Sign Reading Time Taken Comments Blood Pressure - - Pulse - - Temperature - - Respiratory Rate - - Oxygen Saturation - - Inhaled Oxygen Concentration - - Weight 74.8 kg (165 lb) 07/03/2024 12:00 PM EST Height - - Body Mass Index 28.32 07/02/2024 8:48 AM EST documented in this encounter Progress Notes * Fela Dillon RD - 07/03/2024 12:30 PM EST Images from the original note were not included. Patient-created Goals: Protein goal: 60-80g daily Tracking protein: bekah tidwell Use protein handout to learn protein content of different foods May meal prep high protein meals ahead of time Unflavored protein powder- can mix into anything your eating or drinking will not change the taste (orgain, isopure, unjury) Fluid goal: 48-64 ounces daily, slowly sip Eat/drink protein every few hours at least First priority protein followed by non starchy vegetables then high quality carbohydrates such as fruits and whole grains * Fela Dillon RD - 07/03/2024 12:30 PM EST NUTRITION FOLLOW-UP NOTE: The patient received guidance on receiving healthcare through telehealth, including the use of HIPAA privacy -compliant technology for remote communication and its associated privacy risks. The patient was also informed of the limitations of treatment provided through telehealth and that in the event of a lost or failed video connection, the provider may call back or reschedule the visit. Alternatively, the patient may opt for an in-person visit. The patient gave consent for the use of video communication and provided care and confirmed that they were in a quiet and private location to discuss their health freely. The patient understands the visit will be submitted to their insurance and that they are responsible for any copay or deductible charges. Additionally, if the patient is LimitedEnglish Proficient, deaf, or hard of hearing, speech impaired, or has another disability which impairs their ability to communicate, the services of a qualified vacuum tank tender will be provided during the visit. Patients Location: [facility] Total Time: 30 minutes Patient Name: Beatris Mohan Date of : 1985 Date of Service: 07/03/2024 SURGEON: Dr. Tatyana Canales DESIRED SURGERY: s/p sleve 09/01/23 CHIEF COMPLAINT: Obesity HISTORY: Beatris Mohan is a 38 y.o. female who presents for nutrition visit for post op bariatric surgery.This is their 2 visit. Ht Readings from Last 1 Encounters: 07/02/24 1.626 m (64 ) Nutrition appointment conducted over the phone today. Weight used is most recent recorded in EMR aspatient unable to provide updated weight. Goal wt: 145-150 Wt Readings from Last 5 Encounters: 07/03/24 74.8 kg (165 lb) 07/02/24 75.2 kg (165 lb 12.8 oz) 04/09/24 75.9 kg (167 lb 6.4 oz) 03/26/24 77.1 kg (170 lb) 03/19/24 75.8 kg (167 lb) Body mass index is 28.32 kg/m??. Wt before surgery: 205 Wt change since surgery:-40 EBW = current - wt at BMI of 25: 165-147=18 Challenges: struggling with protein intake Changes since last visit: good with energy, reflux improved EATING HABITS/DIET RECALL: lots of restriction Breakfast: eggs- 1 Lunch: cheese/pb Dinner: veggies/ pepperoni slices or salami or chicken Snacks: veggies/ romanian yogurt Beverages: water, crystal light- 60 ounces MVI: patch Exercise: recent leg and back pain, knee pain- using a cane ALLERGIES: No Known Allergies Nutrition diagnosis: Overweight related to predicted inadequate protein intakeas evidenced by BMI of 28.3 Patient-created Goals: Protein goal: 60-80g daily Tracking protein: bekah tidwell Use protein handout to learn protein content of different foods May meal prep high protein meals ahead of time Unflavored protein powder- can mix into anything your eating or drinking will not change the taste (orgain, isopure, unjury) Fluid goal: 48-64 ounces daily, slowly sip Eat/drink protein every few hours at least First priority protein followed by non starchy vegetables then high quality carbohydrates such as fruits and whole grains Literature Provided: Protein handout, Pt centered goals, and RD contact information Interventions: Discussed pre and post op diets, and bariatric multivitamin supplementation options Nutrition assessment: Pt is 38 y.o. female with h/o has a past medical history of Anxiety and depression, Arthritis, Class 1 obesity with body mass index (BMI) of 31.0 to 31.9 in adult (04/18/2023), DDD (degenerative disc disease), lumbosacral (08/17/2016), Depression (08/17/2016), Difficulty balancing, DM (diabetes mellitus) ([facility]), Hidradenitis suppurativa (08/17/2016), Loss of sensation, and Myofacial muscle pain (08/17/2016). Pt is overweight Stage of change/Barriers to understanding: Pt is open to RD suggestions no barriers to understanding Monitoring/Evaluation: monitor weight and monitor progress toward nutrition goals RD to see patient for follow-up nutrition visit in 2 months Visit Time: The total time of this visit was 30 minutes of which we spent 30 minutes (>50% of the time spent) in direct [id number] consultation for counseling, reviewing medical record and/or coordinating the plan as described above. Fela Dillon RD NUTRITION SERVICES Cosigned by Anita Stroud MD at 07/03/2024 4:38 PM EST documented in this encounter Plan of Treatment Upcoming Encounters Date Type Department Care Team (Late st Contact Info) Description 08/08/2024 8:15 AM EDT Office Visit Adult Medicine [address] [phone] Noah Rose PA [address] [place] [address] 08/27/2024 10:55 AM EDT Appointment Radiology Department [address] [phone] 09/24/2024 10:00 AM EDT Office Visit Bariatric Surgery - [place] [address] [phone] Dee Dee Tian PA [address] [address] 10/11/2024 9:45 AM EDT Office Visit Adult Medicine [address] [phone] Azeem Humphrey MD [address] [place] [address] 04/09/2025 9:00 AM EST Office Visit Adult Medicine [facility] [address] [place] [phone] Azeem Humphrey MD [address] [place] [phone] documented as of this encounter Visit Diagnoses Diagnosis Overweight (BMI 25.0-29.9)- Primary Overweight documented in this encounter Additional Health Concerns Assessment Noted Time PHQ-9 Depression Total Score: 7 04/04/20 24 6:53 PM EST documented as of this encounter Care Teams Automatic Glove Turner And Former Relationship Specialty Start Date End Date Azeem Humphrey MD [address] [place] [id number] PCP - General Internal Medicine 03/14/24 documented as of this encounter
--- OUTSIDE RECORDS SUMMARY | 2024-07-19 12:26 | XMS_ITS | Encounter Summary ---
Author Organization [facility] Address [address] [place] [address] Care Team Providers Care Rail Transportation Operator Name Role Phone Azeem Humphrey MD Primary Care Provider [phone] Reason for Visit * Reason Comments Follow-up 3 month Encounter Details Date Type Department Care Team ([facility] st Contact Info) Description 07/02/2024 8:45 AM EST Office Visit Bariatric Surgery - [place] [address] [phone] Dee Dee Tian PA 271 [facility] [address] [place] [address] Overweight (BMI 25.0-29.9) (Primary Dx); Bariatric surgery status Social History Tobacco Use Types Packs/Day Years [...] care for your loved ones. For example, director child or elderly care for an older adult? [...] Sign Reading Time Taken Comments Blood Pressure 124/83 07/02/2024 8:48 AM EST Pulse 80 07/02/2024 8:48 AM EST Temperature - - Respiratory Rate - - Oxygen Saturation - - Inhaled Oxygen Concentration - - Weight 75.2 kg (165 lb 12.8 oz) 07/02/2024 8:48 AM EST Height 162.6 cm (5' 4 ) 07/02/2024 8:48 AM EST Body Mass Index 28.46 07/02/2024 8:48 AM EST documented in this encounter Progress Notes * Dee Dee Tian, DEANDRE - 07/02/2024 8:45 AM EST Beatris Mohan is a 38 y.o. year old female who presents for follow up regarding obesity. HPI: Ms. Mohan is s/p laparoscopic sleeve gastrectomy on 09/01/2023 [facility] Is lost another 5 pounds since her visit in March 2024 Underwent SI joint fusion in April 2024 States it went well but now is suffering from knee issues Ortho referral pending Walking with a cane Mobility continues to be an issue Plans on meeting with a dietitian as she feels as though she could be doing better with her eating Still feels restricted in the amount she can eat however drinks a lot of water and feels up with fluid Needs to get into a better routine with eating Started protein shakes again No abdominal pain No acid reflux No issues urinating moving bowels Continues to take daily multivitamin Labs from March 2024 revealed low vitamin D and mildly low vitamin B1 She has been taking her supplements as prescribed Body mass index is 28.46 kg/m??. ROS: GENERAL: No malaise, significant unintentional weight loss, fever, chills or night sweats. RESPIRATORY: No cough, wheezing or shortness of breath CARDIOVASCULAR: No chest pain, leg swelling or palpitations. GI: No abdominal discomfort, nausea, vomiting, or change in bowel habits. : No dysuria, frequency or incontinence. SKIN: No lesions, rash or itching. HEMATOLOGY/LYMPHOLOGY No prolonged bleeding, easy bruisability or swollen nodes. MUSCULOSKELETAL: No abnormalities. NEURO: No abnormalities. The remainder of the review of systems is noncontributory PAST MEDICAL HISTORY: Patient Active Problem List Diagnosis DDD (degenerative disc disease), lumbosacral Depression Hidradenitis suppurativa Myofascial muscle pain Orthostatic hypotension Palpitations Sacroiliitis (CMS/HCC) Bariatric surgery status Overweight (BMI 25.0-29.9) PAST SURGICAL HISTORY: Past Surgical History: Procedure Laterality Date SECTION PROCEDURE: HISTORICAL DELIVERY WISDOM TOOTH EXTRACTION Bilateral 2014 PROCEDURE: HISTORICAL WISDOM TEETH EXTRACTION; COMMENT: x4, no excess bleeding SOCIAL HISTORY: Social History Tobacco Use Smoking status: Never Smokeless tobacco: Never Substance Use Topics Alcohol use: Yes Comment: social FAMILY HISTORY: Family History Problem Relation Name Age of Onset Hypertension Mother Hypertension Father Prostate cancer Uncle maternal - mets to bone Family Status Relation Name Status Mother Alive Father Alive Uncle (Not Specified) Sister Alive 4 Brother Alive 1 No partnership data on file MEDICATIONS: There are no discontinued medications. ACTIVE MEDICATIONS: No outpatient medications have been marked as taking for the 07/02/24 encounter (Office Visit) with DEANDRE Sears. ALLERGIES: No Known Allergies PHYSICAL EXAM: Visit Vitals BP 124/83 Pulse 80 Ht 1.626 m (64 ) Wt 75.2 kg (165 lb 12.8 oz) BMI 28.46 kg/m?? OB Status Injection Smoking Status Never BSA 1.81 m?? APPEARANCE: Alert and in no acute distress EYES: Conjunctiva normal and sclera normal and anicteric. LUNG: Chest no retractions. ABDOMEN: Soft, non-tender, without organomegaly or palpable masses. EXTREMITIES: Extremities warm and well perfused without clubbing, cyanosis, or edema. SKIN: Skin color and texture normal. No rashes or lesions. ASSESSMENT: 1. Overweight (BMI 25.0-29.9) 2. Bariatric surgery status PLAN: 1. Obesity - Dietitian follow-up Continue with protein shakes Continue daily multivitamin and supplemental vitamin D Follow-up in 3 months Medication and lab orders: No orders of the defined types were placed in this encounter. Other orders: None cc: Azeem Humphrey MD documented in this encounter Plan of Treatment Upcoming Encounters Date Type Department Care Team (Late st Contact Info) Description 08/08/2024 8:15 AM EDT Office Visit Adult Medicine [address] [phone] Noah Rose PA [address] [place] [phone] 08/27/2024 10:55 AM EDT Appointment Radiology Department - [address] [place] [phone] 09/24/2024 10:00 AM EDT Office Visit Bariatric Surgery - [place] [address] [phone] Dee Dee Tian PA [address] [address] 10/11/2024 9:45 AM EDT Office Visit Adult Medicine [address] [phone] Azeem Humphrey MD [address] [place] [address] 04/09/2025 9:00 AM EST Office Visit Adult [address] [phone] Azeem Humphrey MD [address] [place] [address] documented as of this encounter Visit Diagnoses Diagnosis Overweight (BMI 25.0-29.9)- Primary Overweight Bariatric surgery status documented in this encounter Additional Health Concerns Assessment Noted Time PHQ-9 Depression Total Score: 7 04/04/20 24 6:53 PM EST documented as of this encounter Care Teams Rail Transportation Operator Relationship Specialty Start Date End Date Azeem Humphrey MD [address] [place] [address] PCP - General Internal Medicine 03/14/24 documented as of this encounter
--- OUTSIDE RECORDS SUMMARY | 2024-07-19 12:26 | XMS_ITS | Encounter Summary ---
Author Organization [facility] Address [address] [place] [address] Care Team Providers Care Granite Polisher Name Role Phone Azeem Humphrey MD Primary Care Provider [phone] Reason for Visit * Reason Onset Date Comments Back Pain 07/17/2024 Encounter Details Date Type Department Care Team (Late st Contact Info) Description 07/17/2024 Telephone Adult Medicine [address] [phone] Azeem Hmuphrey MD [address] [place] [phone] Back Pain Social History Tobacco Use Types Packs/Day [...] for your loved ones. For example, child therapist or elderly care for an older [...] Progress Notes * Anamaria Narayanan, NAVI - 07/17/2024 9:50 AM EDT Call to pt spoke to pt , she is experiencing increase pain in lower back left side, Recently a joint fusion in Apr. Seeing ortho in August Also called the surgeon , waiting for call back Pain goes down left leg to her ankle Did well for a while after surgery, Now pain returning, Was taking gabpentin but it was discontinued Has tried tylenol for arthritis, Appt booked for today Pt agreed to time and date * Cricket Fuller - 07/17/2024 9:05 AM EDT Patient call requires triage: Symptoms patient is presenting: Patient called stating that she has been having lower back pain , states that she is also getting leg pain on the left side , would like to speak to nurse to get advice on what to do How long has patient had these symptoms?: a while now For ALL patients calling to schedule any [...] traveled recently to another state outside of [place], [place], [place], [place], [place], [place], [place]? no o If yes, did you quarantine [...] of accident/Injury: No If yes, gather 3rd green party insurance information Third Republican Information: not applicable PCP: Azeem Humphrey MD Payor: [employer] / Plan: [employer] / Product Type: *No Product type* / documented in this encounter Plan of Treatment Upcoming Encounters Date Type Department Care Team (Late st Contact Info) Description 08/08/2024 8:15 AM EDT Office Visit Adult Medicine [address] [phone] Noah Rose PA [address] [place] [address] 08/27/2024 10:55 AM EDT Appointment Radiology Department [address] [phone] 09/24/2024 10:00 AM EDT Office Visit Bariatric Surgery - [place] [address] [phone] Dee Dee Tian PA [address] [address] 10/11/2024 9:45 AM EDT Office Visit Adult Medicine [address] [phone] Azeem Humphrey MD [address] [place] [address] 04/09/2025 9:00 AM EST Office Visit Adult Medicine [address] [phone] Azeem Humphrey MD [address] [place] [address] documented as of this encounter Visit Diagnoses Not on filedocumented in this encounter Additional Health Concerns Assessment Noted Time PHQ-9 Depression Total Score: 13 03/2 025 10:15 AM EDT documented as of this encounter Care Teams Granite Polisher Relationship Specialty Start Date End Date Azeem Humphrey MD [address] [place] [address] PCP - General Internal Medicine 03/14/24 documented as of this encounter
== END 2024-07-19 11:19 | disposition home or self-care (01) ==
LOC: HO.HNS 10:50
PROVIDERS: PCP Internal Medicine; Visit Provider Physician Assistant
DX: M79.662 Pain in left lower leg (principal); M79.652 Pain in left thigh
CPT/HCPCS: 99213

== ENCOUNTER 2024-08-22 08:02 | Outpatient (REF) | payer OTHER, MEDICAID, SELFPAY ==
--- NOTE | ~2024-08-22 | XR_ITS ---
EXAMINATION: XR KNEE, LEFT CLINICAL INFORMATION: M25.562 - Pain in left knee COMPARISON: None available. TECHNIQUE: Three views of the left knee. FINDINGS: Asymmetric joint space narrowing involving medial lateral compartment. No acute cortical disruption or malalignment. No suprapatellar bursa joint effusion. No lytic or blastic lesion. No metallic or radiopaque foreign body. No subcutaneous emphysema. XR/XR knee LT 3V IMPRESSION: No acute fracture or dislocation. Electronically signed by: Siddharth Grace MD 08/23/2024 07:56 AM EDT
--- OUTSIDE RECORDS SUMMARY | 2024-08-23 08:09 | XMS_ITS | Clinical Summary ---
Author Organization [facility] Address [address] [place] [address] Phone Care Team Providers Care District Wire Chief Name Role Phone Azeem Humphrey MD Primary Care Provider [phone] Allergies No known active allergies Medications ondansetron [...] 11:00 AM EDT Office Visit Adult Medicine [address] [phone] Noah Rose PA Sacroiliitis (CMS/[facility] V24) (Primary Dx); Chronic left-sided low back pain with left-sided sciatica; S/P fusion of sacroiliac joint; Hypercalcemia 07/17/2024 Telephone Adult Medicine [address] [phone] Azeem Humphrey MD Back Pain 07/10/2024 Telephone Adult Medicine [address] [phone] Azeem Humphrey MD Knee Pain 07/03/2024 12:30 PM EST Telemedicine Bariatric Surgery [address] [phone] Overweight (BMI 25.0-29.9) (Primary Dx) 07/02/2024 8:45 AM EST Office Visit Bariatric Surgery [address] [phone] Dee Dee Tian PA Overweight (BMI 25.0-29.9) (Primary Dx); Bariatric surgery status from Last 3 Months Immunizations Name Administration Dates Next Due DTP 03/22/1986, 5,02/20/1984,11/19 Hepatitis B (Jsziajb-L-Izuqq , Recombivax HB-Adult) 19yo and older 04/12/2011 [...] DX:Anxiet y and depression DM (diabetes mellitus) (CMS/ [facility] V24, CMS/HCC V28) DX:DM (diabetes mellitus) (H CC) Difficulty [...] for your loved ones. For example, child and adolescent psychologist or elderly care for an older adult? [...] AM EDT Appointment [facility] [address] [place] [phone] 09/24/2024 10:00 AM EDT Office Visit Bariatric Surgery [facility] [address] [phone] Dee Dee Tian PA [address] [address] 10/11/2024 9:45 AM EDT Office Visit Adult Medicine [address] [phone] Azeem Humphrey MD [address] [place] [address] 04/09/2025 9:00 AM EST Office Visit Adult Medicine [address] [phone] Azeem Humphrey MD [address] [place] [phone] Health Maintenance Due Date Last Done Comments [...] screening mammogram for malignant neoplasm of breast HM PAP SMEAR Routine 08/02/2022 from Last 3 Months or Most Recently Relevant to Health Maintenance Results * (ABNORMAL) Comprehensive metabolic panel (07/17/2024 11:55 AM EDT) Sodium 139 133 - 145 mmol/L LAB CHEMISTRY METHOD 07/17/2024 2:05 PM [facility] Potassium 4.1 3.5 - 5.5 mmol/L LAB CHEMISTRY METHOD 07/17/2024 2:05 PM [facility] Chloride 110 96 - 110 mmol/L LAB CHEMISTRY METHOD 07/17/2024 2:05 PM [facility] CO2 22 21 - 32 mmol/L LAB CHEMISTRY METHOD 07/17/2024 2:05 PM [facility] Anion Gap 7 3 - 11 LAB CHEMISTRY METHOD 07/17/2024 2:05 PM [facility] Glucose 109(H) 70 - 100 mg/dL LAB CHEMISTRY METHOD 07/17/2024 2:05 PM [facility] BUN 5 5 - 25 mg/dL LAB CHEMISTRY METHOD 07/17/2024 2:05 PM [facility] Creatinine 0.83 0.50 - 1.10 mg/dL LAB CHEMISTRY METHOD 07/17/2024 2:05 PM [facility] eGFR 91 >=60 mL/min/1. 73m2 LAB CHEMISTRY METHOD 07/17/2024 2:05 PM [facility] Comment:Calculation based on the??Chronic Kidney Disease Epidemiology Collaboration (CKD-EPI) equation refit??without adjustment for race. BUN/Creatinine Ratio 6.0 LAB CHEMISTRY METHOD 07/17/2024 2:05 PM [facility] Calcium 10.7(H) 8.5 - 10.5 mg/dL LAB CHEMISTRY METHOD 07/17/2024 2:05 PM [facility] AST (SGOT) 16 10 - 42 unit/L LAB CHEMISTRY METHOD 07/17/2024 2:05 PM EDT [facility] ALT (SGPT) 16 10 - 60 unit/L LAB CHEMISTRY METHOD 07/17/2024 2:05 PM EDT [facility] Alkaline Phosphatase 113 42 - 121 unit/L LAB CHEMISTRY METHOD 07/17/2024 2:05 PM [facility] Total Protein 8.2(H) 6.0 - 8.0 g/dL LAB CHEMISTRY METHOD 07/17/2024 2:05 PM EDT [facility] Albumin 4.3 3.2 - 5.0 g/dL LAB CHEMISTRY METHOD 07/17/2024 2:05 PM [facility] Total Bilirubin 0.7 0.0 - 1.4 mg/dL LAB CHEMISTRY METHOD 07/17/2024 2:05 PM [facility] Blood Venous blood specimen / Unknown Venipuncture / Unknown 07/17/2024 11:55 AM EDT 07/17/2024 11:55 AM EDT Noah CARRERA LAB BLOOD ORDERABLES Fi nal Result [facility] [address] [place] [address], * Lipid panel with reflex to direct LDL (05/03/2024 8:09 AM EST) Cholesterol 172 0 - 200 mg/dL LAB CHEMISTRY METHOD 05/03/2024 10:16 AM EST [facility] Triglycerides 90 0 - 150 mg/dL LAB CHEMISTRY METHOD 05/03/2024 10:16 AM EST [facility] HDL 59 >=40 mg/dL LAB CHEMISTRY METHOD 05/03/2024 10:16 AM EST [facility] LDL Calculated 95 0 - 100 mg/dL LAB CHEMISTRY METHOD 05/03/2024 10:16 AM EST [facility] VLDL Cholesterol Olvin 18 mg/dL LAB CHEMISTRY METHOD 05/03/2024 10:16 AM EST [facility] Non HDL Chol. (LDL+VLDL) 113 <145 mg/dL LAB CHEMISTRY METHOD 05/03/2024 10:16 AM EST [facility] Chol/HDL Ratio 2.9 0.0 - 4.4 LAB CHEMISTRY METHOD 05/03/2024 10:16 AM EST [facility] Blood Venous blood specimen / Unknown Venipuncture / Unknown 05/03/2024 8:09 AM EST 05/03/2024 8:09 AM EST Noah CARRERA LAB BLOOD ORDERABLES Fi nal Result [facility] ([facility] [address] [place] [address], * MADDY SCREENING DIGITAL (08/23/2023 2:25 PM EDT) Anatomical Region Laterality Modality Mammography 08/23/2023 7:26 AM EDT Narrative 08/23/2023 2:25 PM EDT [facility] Diagnostic Imaging Department [address] [place] [address] Patient: ??JOHANA MOHAN ?/Age/Sex: 1985 - - Unit#: ??[id number] ? Location/Status: ??SPDIMAM/REG CLI ? Mnemonic/Ordering Site: ??DIGSC/SPMAM Ordering Physician: ??TERENCE SINGLETON SOLAR SALES MANAGER Maddy Screening Digital - 08/23/23 - 0746 Report Status:Signed EXAM: Maddy Screening Digital EXAM DATE AND TIME: 08/23/2023 7:48 AM HISTORY: ??Screening. Baseline exam. COMPARISON: ??No comparison imaging. TECHNIQUE: Bilateral digital breast tomosynthesis was performed in the CC and MLO projections. Computer aided detection with [employer] 3D 3.1 was employed. TISSUE DENSITY: a. [...] Procedure Note Kacey Zafar MD - 12/25/2023 [facility] Diagnostic Imaging Department [address] [place] [id number] Patient: JOHANA MOHAN /Age/Sex: 1985 - 38 - F Unit#: [id number] Location/Status: SPDIMAM/REG CLI Mnemonic/Ordering Site: [facility] Ordering Physician: TERENCE SINGLETON SOLAR SALES MANAGER [facility] Screening Digital - 08/23/23 - 46 Report Status:Signed EXAM: [facility] Screening Digital EXAM DATE AND TIME: 08/23/2023 7:48 AM HISTORY: Screening. Baseline exam. COMPARISON: No comparison imaging. TECHNIQUE: Bilateral digital breast tomosynthesis was performed in the CCand MLO projections. Computer aided detection with [employer] 3D 3.1was employed. TISSUE DENSITY: a. The [...] Signed by: KACEY ZAFAR MD Dic Date/Time: 08/23/231422 Sign date/Time: 08/23/231424 us Patience Assobmo SOLAR SALES MANAGER IMG BI PROCEDURES Final Resu lt * Hm Pap Smear (08/02/2022) HM Pap smear No interpretation , Abstracted us Historical Provider HEALTH MAINTENANCE Final Result from Last 3 Months or Most Recently Relevant to Health Maintenance Insurance [facility] MEDICAID - [place] Care Teams District Wire Chief Relationship Specialty Start Date End Date Azeem Humphrey MD [address] [place] [phone] PCP - General Internal Medicine 03/14/24
== END 2024-08-22 08:03 | disposition home or self-care (01) ==
LOC: HO.HOSX 08:02
PROVIDERS: Visit Provider Orthopaedic Surgery
DX: M25.562 Pain in left knee (principal)
CPT/HCPCS: 73562

== ENCOUNTER 2024-08-22 10:55 | Outpatient (AMB) | payer OTHER, MEDICAID, SELFPAY ==
[2024-08-22 11:01] VITALS: BMI 28.0
--- NOTE | 2024-08-22 11:01 | MHC.OFFVIS ---
Vital Signs 08/22/24 11:01 Height 5 ft 4 in Weight 163 lb BMI 28.0 Intake Visit Reasons: Left knee pain and locking Intake Note: Beatris is a 39 year old female who presents with complaints of progressively worsening left knee pain and locking. The patient describes her pain as sharp in nature. Most of the pain is along the medial aspect of her knee. She states that her knee will lock several times per day. She has failed the last 6 weeks of conservative treatment which has included physical therapy at [facility] in [place], a home exercise program, Tylenol and anti-inflammatory medicines. She does walk with a rolling walker when she is out of her home. Allergies No Known Allergies Allergy (Verified 08/22/24 11:01) Medication List - Last Reconciled 08/22/24 by Eusebio Lim MD acetaminophen 1,000 mg PO Q8H ergocalciferol (vitamin D2) 1,250 mcg PO QWEEK gabapentin 400 mg PO TID medroxyprogesterone mg IM omeprazole 20 mg PO DAILY sertraline 25 mg PO DAILY simethicone 80 mg PO Q6H PRN PFSH Medical History DDD (degenerative disc disease), lumbosacral Depression Orthostatic hypotension Palpitations GERD (gastroesophageal reflux disease) Sacroiliac joint dysfunction of left side Surgical History Hx of wisdom tooth extraction Hx of section Hx of gastric bypass Social History Are you a primary clinical manager home care to a significant other at home: No Do you presently have visiting nurse or other home services: No Patient Tobacco Use Status: Never used Tobacco Physical Exam Vital Signs: BMI result Body Mass Index 28.0 Const Other: Well-nourished well-developed very friendly female awake alert and oriented x3 in no acute distress Extrem Other: Bilateral lower extremity examination shows good capillary refill, no skin lesions noted, normal sensation light touch Left knee examination shows a minimal effusion, minimal crepitus with range of motion, tenderness along her medial joint line, positive Aldo's test, no instability Results Reviewed Results Reviewed: Standing full weight-bearing x-rays of the patient's left knee show mild diffuse joint space narrowing, no acute bony abnormalities Assessment & Plan Assessment & Plan (1) Tear of medial meniscus of left knee: Code(s): S83.242A - Other tear of medial meniscus, current injury, left knee, initial encounter Category: Medical Plan Ms. Mohan presents with left knee pain and mechanical symptoms most likely due to a medial meniscus tear. Thus, I will send the patient for an MRI of her left knee for further evaluation. I will see her back once the MRI is completed to discuss the findings and treatment options. Feel free to call me at any time should questions regarding her orthopedic management arise. Thank you very much for asking me to see this very friendly patient. I spent 21 minutes in reviewing the patient's records and imaging studies, seeing the patient and documenting in the medical record. Orders: Orders MR knee LT wo con Today S83.242A - Other tear of medial meniscus, current injury, left knee, initial encounter XR knee LT 3V Today M25.562 - Pain in left knee Coding Level of Care Code New Pt Level 3 (99854) Complex EM visit Add On G2211 Diagnoses Tear of medial meniscus of left knee S83.242A
--- OUTSIDE RECORDS SUMMARY | 2024-08-22 13:20 | XMS_ITS | Clinical Summary ---
Author Organization [facility] Address [address] [place] [address] Phone Care Team Providers Care Foreign Broadcast Specialist Name Role Phone Azeem Humphrey MD Primary Care Provider [phone] Allergies No known active allergies Medications ondansetron ODT (ZOFRAN-ODT) 4 mg disintegrating tablet DISSOLVE 1 TABLET UNDER THE TONGUE EVERY 8 HOURS NEEDED FOR NAUSEA FOR UP TO 7 DAYS. 09/18/19 24 Active simethicone (MYLICON) 80 mg chewable tablet Take 1 Tablet by mouth every 6 hours as needed for Flatulence for up to 30 days. 08/24/19 24 Active acetaminophen (TYLENOL) 500 mg tablet Take 2 Tablets by mouth every 8 hours for 30 days. 08/24/19 24 Active blood sugar diagnostic (FreeStyle Lite Strips) test strip To check BS once daily E11.9 06/02/19 24 Active omeprazole OTC (PriLOSEC OTC) 20 mg EC tablet Take 1 Tablet by mouth 3 times daily. Active omeprazole (PriLOSEC) [address] capsule TAKE 1 CAPSULE BY MOUTH DAILY FOR 360 DAYS. 90 capsule 1 04/15/20 24 Active ergocalciferol (VITAMIN D-2) 1,250 mcg (50,000 unit) capsule Take 1 capsule (50,000 Units total) by mouth 1 (one) time per week. 4 each 11 04/25/20 24 025 Active sertraline (ZOLOFT) 25 mg tablet TAKE 1 TABLET BY MOUTH EVERY DAY 90 tablet 1 05/02/20 24 Active diclofenac (VOLTAREN) 1 % topical gel APPLY 1 G TOPICALLY 4 TIMES DAILY NEEDED (PAIN). 100 g 3 05/20/19 25 Active predniSONE (DELTASONE) 20 mg tablet Take 3 tabs for 3 days, take 2 tabs for 3 days, take 1 tab for 3 days 18 tablet 07/18/19 25 Active cyclobenzaprine (FLEXERIL) 5 mg tablet Take 1 tablet (5 mg total) by mouth 3 (three) times a day if needed for muscle spasms. Do not drive or operate machinery after taking this due to potential drowsiness. 60 tablet 08/23/19 25 025 Active gabapentin (NEURONTIN) 300 mg capsule Take 1 capsule (300 mg total) by mouth 2 (two) times a day. Take 1 Capsule by mouth 2 times daily. 180 capsule 1 08/23/19 25 Active gabapentin (NEURONTIN) 300 mg capsule Take 1 Capsule by mouth 2 times daily. 025 Discontin ued(Reord er) cyclobenzaprine (FLEXERIL) 5 mg tablet Take 1 tablet (5 mg total) by mouth 3 (three) times a day if needed for muscle spasms. Do not drive or operate machinery after taking this due to potential drowsiness. 30 tablet 07/18/19 25 025 Discontin ued(Reord er) cyclobenzaprine (FLEXERIL) 5 mg tablet Take 1 tablet (5 mg total) by mouth 3 (three) times a day if needed for muscle spasms. Do not drive or operate machinery after taking this due to potential drowsiness. 30 tablet 08/01/19 25 025 Discontin ued(Reord er) Active Problems Problem Noted Date Diagnosed Date Bariatric surgery status 03/26/2024 Overweight (BMI 25.0-29.9) 03/26/2024 Orthostatic hypotension 12/19/2023 Overview (02/13/2024): Orthostatic hypotension Palpitations 12/19/2023 Overview (02/13/2024): Palpitations Sacroiliitis (CMS/HCC V24) 12/19/2023 DDD (degenerative disc disease), lumbosacral 04/2017 Overview (02/13/2024): L4-5, L5-S1 Depression 08/17/2016 Hidradenitis suppurativa 08/17/2016 Myofascial muscle pain 08/17/2016 Resolved Problems Problem Noted Date Diagnosed Date Resolved Date Class 1 obesity with body ma ss index (BMI) of 31.0 to 31.9 in adult 04/18/2023 07/02/2024 Encounters Date Type Department Care Team Description 07/17/2024 11:00 AM EDT Office Visit Adult Medicine [address] [phone] Noah Rose PA Sacroiliitis ([facility] V24) (Primary Dx); Chronic left-sided low back pain with left-sided sciatica; S/P fusion of sacroiliac joint; Hypercalcemia 07/17/2024 Telephone Adult Medicine [address] [phone] Azeem Humphrey MD Back Pain 07/10/2024 Telephone Adult Medicine [address] [phone] Azeem Humphrey MD Knee Pain 07/03/2024 12:30 PM EST Telemedicine Bariatric Surgery - [address] [phone] Overweight (BMI 25.0-29.9) (Primary Dx) 07/02/2024 8:45 AM EST Office Visit Bariatric Surgery [address] [phone] Dee Dee Tian PA Overweight (BMI 25.0-29.9) (Primary Dx); Bariatric surgery status from Last 3 Months Immunizations Name Administration Dates Next Due DTP 03/22/1986, 5,02/20/1984,11/19 Hepatitis B (Aailxaf-V-Cdbuf , Recombivax HB-Adult) 19yo and older 04/12/2011 [...] DX:Anxiet y and depression DM (diabetes mellitus) ([facility]/ [facility] V24, [facility] V28) DX:DM (diabetes mellitus) (H CC) Difficulty balancing DX:Difficul ty balancing Loss of [...] care for your loved ones. For example, summer child caregiver or elderly care for an [...] Care Team (Late st Contact Info) Description 09/17/2024 10:30 AM EDT [facility]ointment [facility] [address] [place] [phone] 09/24/2024 10:00 AM EDT Office Visit Bariatric Surgery [facility] [address] [phone] Dee Dee Tian PA [address] [address] 10/11/2024 9:45 AM EDT Office Visit Adult Medicine [address] [phone] Azeem Humphrey MD [address] [place] [phone] 04/09/2025 9:00 AM EST Office Visit Adult Medicine [address] [phone] Azeem Humphrey MD [address] [place] [address] Health Maintenance Due Date Last Done Comments Pneumococcal Vaccine: Pediatrics (0 to 5 Years) and At-Risk Patients (6 to 64 Years) (1 of 2 - PCV) 07/11/2002 Hepatitis B Vaccines (2 of 3 - 19+ 3-dose series) 05/10/2011 04/12/2011 HIV Screening 04/10/2022 Hepatitis C Screening 04/10/2022 COVID-19 Vaccine ( season) 2024 04/19/2022, 12/26/2021, 01/23/2021, Additional history exists Social Influencers of Health Screening 04/04/2025 04/04/2024 Depression Screening 07/17/2025 07/17/2024 Cervical Cancer Screening: Pap Smear 08/02/2025 08/02/2022 [...] this topic Influenza Vaccine Discontinued Meningococcal B Vaccine Aged Out No l onger eligible based on patient's age to complete this topic RSV Immunization Patients Under 20 months Aged Out No longer eligible based on patient's age to complete this topic Varicella Vaccines Aged Out No longer eligible based on patient's age to complete this topic Procedures Procedure Name Priority Date/Time Associated Diagnosis Comments COMPREHENSIVE METABOLIC PANEL Routine 07/17/2024 11:55 AM EDT Sacroiliitis (CMS/HCC V24) LIPID PANEL WITH REFLEX TO DIRECT LDL Routine 05/03/2024 8:09 AM EST Routine history and physical examination of adult [facility] SCREENING DIGITAL Routine 08/23/2023 2:25 PM EDT Encounter for screening mammogram for malignant neoplasm of breast PAP SMEAR Routine 08/02/2022 from Last 3 Months or Most Recently Relevant to Health Maintenance Results * (ABNORMAL) Comprehensive metabolic panel (07/17/2024 11:55 AM EDT) Pathologist [facility] Sodium 139 133 - 145 mmol/L LAB CHEMISTRY METHOD 07/17/2024 2:05 PM [facility] Potassium 4.1 3.5 - 5.5 mmol/L LAB CHEMISTRY METHOD 07/17/2024 2:05 PM [facility] Chloride 110 96 - 110 mmol/L LAB CHEMISTRY METHOD 07/17/2024 2:05 PM [facility] CO2 22 21 - 32 mmol/L LAB CHEMISTRY METHOD 07/17/2024 2:05 PM [facility] Anion Gap 7 3 - 11 LAB CHEMISTRY METHOD 07/17/2024 2:05 PM [facility] Glucose 109(H) 70 - 100 mg/dL LAB CHEMISTRY METHOD 07/17/2024 2:05 PM [facility] BUN 5 5 - 25 mg/dL LAB CHEMISTRY METHOD 07/17/2024 2:05 PM [facility] Creatinine 0.83 0.50 - 1.10 mg/dL LAB CHEMISTRY METHOD 07/17/2024 2:05 PM [facility] eGFR 91 >=60 mL/min/1. 73m2 LAB CHEMISTRY METHOD 07/17/2024 2:05 PM [facility] Comment:Calculation based on the??Chronic Kidney Disease Epidemiology Collaboration (CKD-EPI) equation refit??without adjustment for race. BUN/Creatinine Ratio 6.0 LAB CHEMISTRY METHOD 07/17/2024 2:05 PM [facility] Calcium 10.7(H) 8.5 - 10.5 mg/dL LAB CHEMISTRY METHOD 07/17/2024 2:05 PM [facility] AST (SGOT) 16 10 - 42 unit/L LAB CHEMISTRY METHOD 07/17/2024 2:05 PM [facility] ALT (SGPT) 16 10 - 60 unit/L LAB CHEMISTRY METHOD 07/17/2024 2:05 PM [facility] Alkaline Phosphatase 113 42 - 121 unit/L LAB CHEMISTRY METHOD 07/17/2024 2:05 PM [facility] Total Protein 8.2(H) 6.0 - 8.0 g/dL LAB CHEMISTRY METHOD 07/17/2024 2:05 PM [facility] Albumin 4.3 3.2 - 5.0 g/dL LAB CHEMISTRY METHOD 07/17/2024 2:05 PM [facility] Total Bilirubin 0.7 0.0 - 1.4 mg/dL LAB CHEMISTRY METHOD 07/17/2024 2:05 PM [facility] Blood Venous blood specimen / Unknown Venipuncture / Unknown 07/17/2024 11:55 AM EDT 07/17/2024 11:55 AM EDT Noah CARRERA LAB BLOOD ORDERABLES Fi nal Result [facility] [address] [place] [address], * Lipid panel with reflex to direct LDL (05/03/2024 8:09 AM EST) Cholesterol 172 0 - 200 mg/dL LAB CHEMISTRY METHOD 05/03/2024 10:16 AM EST [facility] Triglycerides 90 0 - 150 mg/dL LAB CHEMISTRY METHOD 05/03/2024 10:16 AM EST [facility] HDL 59 >=40 mg/dL LAB CHEMISTRY METHOD 05/03/2024 10:16 AM EST [facility] LDL Calculated 95 0 - 100 mg/dL LAB CHEMISTRY METHOD 05/03/2024 10:[address] [facility] VLDL Cholesterol Olvin 18 mg/dL LAB CHEMISTRY METHOD 05/03/2024 10:16 AM EST [facility] Non HDL Chol. (LDL+VLDL) 113 <145 mg/dL LAB CHEMISTRY METHOD 05/03/2024 10:[address] [facility] Chol/HDL Ratio 2.9 0.0 - 4.4 LAB CHEMISTRY METHOD 05/03/2024 10:[address] [facility] Blood Venous blood specimen / Unknown Venipuncture / Unknown 05/03/2024 8:09 AM EST 05/03/2024 8:09 AM EST Noah CARRERA LAB BLOOD ORDERABLES Fi nal Result [facility] [address] [place] [address], * MADDY SCREENING DIGITAL (08/23/2023 2:25 PM EDT) Anatomical Region Laterality Modality Mammography 08/23/2023 7:26 AM EDT Narrative 08/23/2023 2:25 PM EDT [facility] Diagnostic Imaging Department [address] [place] [address] Patient: ??JOHANA MOHAN ?/Age/Sex: 1985 - 38 - F Unit#: ??[id number] ? Location/Status: ??SPDIMAM/REG CLI ? Mnemonic/Ordering Site: ??DIGSC/SPMAM Ordering Physician: ??SINGLETON,PATIENCE INDUSTRIAL ORDER CLERK Maddy Screening Digital - 08/23/23 - 46 Report Status:Signed EXAM: [facility] Screening Digital EXAM DATE AND TIME: 08/23/2023 7:48 AM HISTORY: ??Screening. Baseline exam. COMPARISON: ??No comparison imaging. TECHNIQUE: Bilateral digital breast tomosynthesis was performed in the CC and MLO projections. Computer aided detection with [employer] 3D 3.1 was employed. TISSUE DENSITY: a. [...] Procedure Note Kacey Zafar MD - 12/25/2023 [facility] Diagnostic Imaging Department [address] [place] [address] Patient: JOHANA MOHAN /Age/Sex: 1985 - 38 - F Unit#: [id number] Location/Status: SPDIMAM/REG CLI Mnemonic/Ordering Site: [facility] Ordering Physician: TERENCE SINGLETON NP [facility] Screening Digital - 08/23/23 - 46 Report Status:Signed EXAM: [facility] Screening Digital EXAM DATE AND TIME: 08/23/2023 7:48 AM HISTORY: Screening. Baseline exam. COMPARISON: No comparison imaging. TECHNIQUE: Bilateral digital breast tomosynthesis was performed in the CCand MLO projections. Computer aided detection with [employer] 3D 3.1was employed. TISSUE DENSITY: a. The [...] by: KACEY ZAFAR MD Dic Date/Time: 08/23/23 1423 Sign date/Time: 08/23/23 1425 us Patience Assobmo INDUSTRIAL ORDER CLERK IMG BI PROCEDURES Final Resu lt * Hm Pap Smear (08/02/2022) HM Pap smear No interpretation , Abstracted us Historical Provider HEALTH MAINTENANCE Final Result from Last 3 Months or Most Recently Relevant to Health Maintenance Insurance [facility] MEDICAID - [place] Care Teams Foreign Broadcast Specialist Relationship Specialty Start Date End Date Azeem Humphrey MD [address] [place] [phone] PCP - General Internal Medicine 03/14/24
== END 2024-08-22 11:30 | disposition home or self-care (01) ==
LOC: HO.HOS 10:56
PROVIDERS: PCP Internal Medicine; Visit Provider Orthopaedic Surgery
DX: S83.242A Other tear of medial meniscus, current injury, left knee, initial encounter (principal)
CPT/HCPCS: 99203

== ENCOUNTER → 2024-08-22 10:57 | Outpatient (BNV) | payer OTHER, MEDICAID, SELFPAY | PROVIDERS: Visit Provider Radiology Diagnostic Radiology | DX: M25.562 Pain in left knee (principal) | CPT/HCPCS: 73562 ==

== ENCOUNTER 2024-08-25 19:42 | Outpatient (REF) | payer OTHER, MEDICAID, SELFPAY | END 2024-08-25 19:43 | disposition home or self-care (01) | LOC: HO.MRI 19:42 | PROVIDERS: Visit Provider Orthopaedic Surgery | DX: S83.242A Other tear of medial meniscus, current injury, left knee, initial encounter (principal) | CPT/HCPCS: 73721 ==

== ENCOUNTER → 2024-08-25 19:49 | Outpatient (BNV) | payer OTHER, MEDICAID, SELFPAY | PROVIDERS: Visit Provider Radiology Diagnostic Radiology | DX: M25.562 Pain in left knee (principal) | CPT/HCPCS: 73721 ==

== ENCOUNTER 2024-09-22 15:22 | Outpatient (REF) | payer OTHER, MEDICAID, SELFPAY ==
--- NOTE | ~2024-09-22 | MR_ITS ---
CLINICAL HISTORY: M54.16 - Radiculopathy, lumbar region --- Additional Notes or Special Instructions: left leg pain, ? herniated disk Exam: MRI of the lumbar spine with and without intravenous contrast. Comparison: None. Findings: Bony alignment of the lumbar vertebral bodies is anatomic. Bone marrow signal intensities within normal limits. No fracture or concerning bone marrow signal alteration is identified. No abnormal enhancement within the visualized portions of the lumbar vertebral bodies. The conus terminates at T12-L1. No abnormal signal intensity or enhancement is identified within the conus medullaris. No retroperitoneal mass lesions identified. Segmental analysis: L1-2: Negative. L2-3: Negative. L3-4: No disc bulge or protrusion. Mild facet joint degenerative change. Central canal and neural foramina are patent. L4-5: Mild disc desiccation with broad-based disc bulge. There is a tiny central high-intensity zone along the superior aspect of the central portion of the disc. No protrusion. Mild facet joint degenerative change. Central canal and neural foramina are patent. L5-S1: Disc desiccation with subtle central disc protrusion. [id number] facet joint degenerative change. Central canal and neural foramina are patent. Impression: 1. No acute bony abnormality. 2. Degenerative disc disease and degenerative facet disease at L4-5 and L5-S1 without neural impingement. This document has been electronically signed by: Abraham Atkinson MD on 09/24/2024 08:31:24
--- OUTSIDE RECORDS SUMMARY | 2024-09-22 15:24 | XMS_ITS | Clinical Summary ---
Author Organization [facility] Address [address] [place] [address] Phone Care Team Providers Care Technology Architect Name Role Phone Azeem Humphrey MD Primary Care Provider [phone] Allergies No known active allergies Medications ondansetron [...] 3 days 18 tablet 07/18/19 25 Active gabapentin (NEURONTIN) 300 mg capsule Take 1 capsule (300 mg total) by mouth 2 (two) times a day. Take 1 Capsule by mouth 2 times daily. 180 capsule 1 08/23/19 25 Active cyclobenzaprine (FLEXERIL) 5 mg tablet Take 1 tablet (5 mg total) by mouth 3 (three) times a day if needed for muscle spasms. Do not drive or operate machinery after taking this due to potential drowsiness. 60 tablet 1 09/17/19 25 025 Active cyclobenzaprine (FLEXERIL) 5 mg tablet Take 1 tablet (5 mg total) by mouth 3 (three) times a day if needed for muscle spasms. Do not drive or operate machinery after taking this due to potential drowsiness. 60 tablet 08/23/19 25 025 Discontin ued(Reord er) Active Problems Problem Noted Date Diagnosed Date Bariatric surgery status 03/26/2024 Overweight (BMI 25.0-29.9) 03/26/2024 Orthostatic hypotension 12/19/2023 Overview (02/13/2024): Orthostatic hypotension Palpitations 12/19/2023 Overview (02/13/2024): Palpitations Sacroiliitis (CMS/[facility] V24) 12/19/2023 DDD (degenerative disc disease), lumbosacral 04/2017 Overview (02/13/2024): L4-5, L5-S1 Depression 08/17/2016 Hidradenitis suppurativa 08/17/2016 Myofascial muscle pain 08/17/2016 Resolved Problems Problem Noted Date Diagnosed Date Resolved Date Class 1 obesity with body ma ss index (BMI) of 31.0 to 31.9 in adult 04/18/2023 07/02/2024 Encounters Date Type Department Care Team Description 09/17/2024 9:57 AM EDT - 09/17/2024 11:59 PM EDT [facility] [address] [phone] BI-RADS category 3 mammogram result Discharge Disposition: Home or Self Care 07/17/2024 11:00 AM EDT Office Visit Adult Medicine [address] [phone] Noah Rose PA Sacroiliitis (CMS/HCC V24) (Primary Dx); Chronic left-sided low back pain with left-sided sciatica; S/P fusion of sacroiliac joint; Hypercalcemia 07/17/2024 Telephone Adult Medicine [address] [phone] Azeem Humphrey MD Back Pain 07/10/2024 Telephone Adult Medicine [address] [phone] Azeem Humphrey MD Knee Pain 07/03/2024 12:30 PM EST Telemedicine Bariatric Surgery [address] [phone] Overweight (BMI 25.0-29.9) (Primary Dx) 07/02/2024 8:45 AM EST Office Visit Bariatric Surgery [address] [phone] Dee Dee Tian PA Overweight (BMI 25.0-29.9) (Primary Dx); Bariatric surgery status from Last 3 Months Immunizations Name Administration Dates Next Due DTP 03/22/1986, 5,02/20/1984,11/19 Hepatitis B (Tlfwaom-U-Meqok , Recombivax HB-Adult) 19yo and older 04/12/2011 [...] y and depression DM (diabetes mellitus) (CMS/ [facility] V24, CMS/[facility]ER[facility] V28) DX:DM (diabetes mellitus) (H CC) Difficulty [...] care for your loved ones. For example, childcare worker or elderly care for an older adult? [...] Sexual Orientation Not on file Obstetrics History Para Term AB IAB SAB Ectopic Multiple Livin g Live Births 4 Last Filed Vital Signs Vital Sign Reading [...] 10:51 AM EDT Height 162.6 cm (5' 4 ) 09/17/2024 10:10 AM EDT Body Mass Index 27.45 07/17/2024 10:51 AM EDT Plan of Treatment Upcoming Encounters Date Type Department Care Team (Late st Contact Info) Description 09/24/2024 10:00 AM EDT Office Visit Bariatric Surgery - [place] [address] [phone] Dee Dee Tian PA [address] [phone] 10/11/2024 9:45 AM EDT Office Visit Adult Medicine [address] [phone] Azeem Humphrey MD [address] [place] [phone] 03/25/2025 7:30 AM EST Appointment [facility] [address] [place] [phone] 04/09/2025 9:00 AM EST Office Visit Adult Medicine [address] [phone] Azeem Humphrey MD [address] [place] [phone] Health Maintenance Due Date Last Done Comments Pneumococcal Vaccine: Pediatrics (0 to 5 Years) and At-Risk Patients (6 to 64 Years) (1 of 2 - PCV) 07/11/2002 Hepatitis B Vaccines (2 of 3 - 19+ 3-dose series) 05/10/2011 04/12/2011 HIV Screening 04/10/2022 Hepatitis C Screening 04/10/2022 COVID-19 Vaccine (5 - season) 2024 04/19/2022, 12/26/2021, 01/23/2021, Additional history exists Social Influencers of Health Screening 04/04/2025 04/04/2024 Depression Screening 07/17/2025 07/17/2024 Cervical Cancer Screening: Pap Smear 08/02/2025 08/02/2022 Breast Cancer Screening 09/17/2026 09/17/2024, 08/22 Cholesterol Screening (Lipid Panel) 05/03/2029 05/03/2024, 03/02/2023 [...] Procedure Name Priority Date/Time Associated Diagnosis Comments BASIC METABOLIC PANEL Routine 09/20/2024 3:46 PM EDT Hypercalcemia VITAMIN D 25 HYDROXY Routine 09/20/2024 3:46 PM EDT Hypercalcemia PARATHYROID HORMONE INTACT Routine 09/20/2024 3:46 PM EDT Hypercalcemia MG MAMMO DIGITAL DIAGNOSTIC W ARIS BILAT Routine 09/17/2024 10:51 AM EDT BI-RADS category 3 mammogram result COMPREHENSIVE METABOLIC PANEL Routine 07/17/2024 11:55 AM EDT Sacroiliitis (CMS/HCC V24) LIPID PANEL WITH REFLEX TO DIRECT LDL Routine 05/03/2024 8:09 AM EST Routine history and physical examination of adult HM PAP SMEAR Routine 08/02/2022 from Last 3 Months or Most Recently Relevant to Health Maintenance Results * (ABNORMAL) Vitamin D 25 hydroxy (09/20/2024 3:46 PM EDT) Vit D, 25-Hydroxy 90.5(H) 30.0 - 80.0 ng/mL LAB CHEMISTRY METHOD 09/20/2024 8:29 PM EDT [facility] Blood Venous blood specimen / Unknown Venipuncture / Unknown 09/20/2024 3:46 PM EDT 09/20/2024 3:46 PM EDT Noah CARRERA LAB BLOOD ORDERABLES Fi nal Result [facility] [address] [place] [address], * Parathyroid hormone intact (09/20/2024 3:46 PM EDT) PTH 50.2 18.5 - 88.0 pcg/mL LAB CHEMISTRY METHOD 09/20/2024 8:29 PM EDT [facility] Blood Venous blood specimen / Unknown Venipuncture / Unknown 09/20/2024 3:46 PM EDT 09/20/2024 3:46 PM EDT Noah CARRERA LAB BLOOD ORDERABLES Fi nal Result [facility] [address] [place] [address], * (ABNORMAL) Basic metabolic panel (09/20/2024 3:46 PM EDT) Sodium 142 133 - 145 mmol/L LAB CHEMISTRY METHOD 09/20/2024 7:52 PM [facility] Potassium 3.9 3.5 - 5.5 mmol/L LAB CHEMISTRY METHOD 09/20/2024 7:52 PM [facility] Chloride 110 96 - 110 mmol/L LAB CHEMISTRY METHOD 09/20/2024 7:52 PM [facility] CO2 24 21 - 32 mmol/L LAB CHEMISTRY METHOD 09/20/2024 7:52 PM [facility] Anion Gap 8 3 - 11 LAB CHEMISTRY METHOD 09/20/2024 7:52 PM [facility] Glucose 131(H) 70 - 100 mg/dL LAB CHEMISTRY METHOD 09/20/2024 7:52 PM [facility] BUN 13 5 - 25 mg/dL LAB CHEMISTRY METHOD 09/20/2024 7:52 PM [facility] Creatinine 0.68 0.50 - 1.10 mg/dL LAB CHEMISTRY METHOD 09/20/2024 7:52 PM [facility] eGFR 112 >=60 mL/min/1. 73m2 LAB CHEMISTRY METHOD 09/20/2024 7:52 PM [facility] Comment:Calculation based on the Chronic Kidney Disease Epidemiology Collaboration (CKD-EPI) equation refit without adjustment for race. BUN/Creatinine Ratio 19.1 LAB CHEMISTRY METHOD 09/20/2024 7:52 PM [facility] Calcium 9.1 8.5 - 10.5 mg/dL LAB CHEMISTRY METHOD 09/20/2024 7:52 PM EDT [facility] Blood Venous blood specimen / Unknown Venipuncture / Unknown 09/20/2024 3:46 PM EDT 09/20/2024 3:46 PM EDT us Noah CARRERA LAB BLOOD ORDERABLES Fi nal Result [facility] [address] [place] [address], [place] [phone] * MG Mammo Digital Diagnostic w Aris bilat (09/17/2024 10:51 AM EDT) Anatomical Region Laterality Modality Breast Bilateral Mammography 09/17/2024 10:3 5 AM EDT Impressions 09/17/2024 10:47 AM EDT No mammographic evidence of malignancy. ??Stable appearance of bilobed 7 x 3 mm nodular density at the 2:00 position of the left breast 8 cm from the nipple. ??One more follow-up mammogram in the left breast in 6 months is recommended. BI-RADS CATEGORY: 3 - PROBABLY BENIGN RECOMMENDATION: Short Interval Follow-up is recommended for the left breast in 6 months. Mammo Location: [facility], [address] [place] [id number] -------- FINAL REPORT -------- Dictated By: Shahab Serrano Dictated Date: 09/17/2024 10:35 ET Assigned Physician: Shahab Serrano Reviewed and Electronically Signed By: Shahab Serrano Signed Date: 09/17/2024 10:47 ET Workstation ID: [id number] Transcribed By: Self Edit Transcribed Date: 09/17/2024 10:35 ET Narrative 09/17/2024 10:47 AM EDT CLINICAL: The patient is a 39 years Female presenting for follow-up of a left breast mass and for annual mammography of the right breast. COMPARISON: 08/23/2023 ?? TECHNIQUE: Full-field digital mammography of the breasts bilaterally consisting of tomosynthesis in MLO and CC projection is performed in the GE Senographe 2000-D unit. ??Computer aided detection utilizing the iCAD system was utilized. FINDINGS: The breasts are again seen to be largely fatty replaced. ??Again seen is a bilobed density in the upper-outer quadrant of the left breast at the 2:00 position approximately 8 cm from the nipple, measuring approximately 7 x 3 mm, stable in appearance as compared to prior studies and is therefore again felt highly likely to be benign. ??No suspicious mass is seen in either breast. ??There is no cluster of microcalcifications, architectural distortion, skin thickening, or nipple retraction. TISSUE DENSITY: The breasts are almost entirely fatty. (BI-RADS ??Category A) Procedure Note Shahab Serrano MD - 09/17/2024 CLINICAL: The patient is a 39 years Female presenting for follow-up of aleft breast mass and for annual mammography of the right breast. COMPARISON: 08/23/2023 TECHNIQUE: Full-field digital mammography of the breasts bilaterallyconsisting of tomosynthesis in MLO and CC projection is performed in theMobSmithographe 2000-D unit. Computer aided detection utilizing the iCADsystem was utilized. FINDINGS: The breasts are again seen to be largely fatty replaced. Againseen is a bilobed density in the upper-outer quadrant of the left breastat the 2:00 position approximately 8 cm from the nipple, measuringapproximately 7 x 3 mm, stable in appearance as compared to prior studiesand is therefore again felt highly likely to be benign. No suspiciousmass is seen in either breast. There is no cluster ofmicrocalcifications, architectural distortion, skin thickening, or nippleretraction. TISSUE DENSITY: The breasts are almost entirely fatty. (BI-RADS CategoryA) IMPRESSION: No mammographic evidence of malignancy. Stable appearance of bilobed 7 x3 mm nodular density at the 2:00 position of the left breast 8 cm from thenipple. One more follow-up mammogram in the left breast in 6 months isrecommended. BI-RADS CATEGORY: 3 - PROBABLY BENIGN RECOMMENDATION: Short Interval Follow-up is recommended for the left breast in 6 months. Mammo Location: [facility], [facility], [address] [place] [id number] -------- FINAL REPORT -------- Dictated By: Shahab Serrano Dictated Date: 09/17/2024 10:35 ET Assigned Physician: Shahab Serrano Reviewed and Electronically Signed By: Shahab Serrano Signed Date: 09/17/2024 10:47 ET Workstation ID: [id number] Transcribed By: Self Edit Transcribed Date: 09/17/2024 10:35 ET Ramila CARRERA IMG BI PROCEDURES Final Result * (ABNORMAL) Comprehensive metabolic panel (07/17/2024 11:55 AM EDT) Sodium 139 133 - 145 mmol/L LAB CHEMISTRY METHOD 07/17/2024 2:05 PM [facility] Potassium 4.1 3.5 - 5.5 mmol/L LAB CHEMISTRY METHOD 07/17/2024 2:05 PM [facility] Chloride 110 96 - 110 mmol/L LAB CHEMISTRY METHOD 07/17/2024 2:05 PM [facility] CO2 22 21 - 32 mmol/L LAB CHEMISTRY METHOD 07/17/2024 2:05 PM [facility] Anion Gap 7 3 - 11 LAB CHEMISTRY METHOD 07/17/2024 2:05 PM [facility] Glucose 109(H) 70 - 100 mg/dL LAB CHEMISTRY METHOD 07/17/2024 2:05 PM [facility] BUN 5 5 - 25 mg/dL LAB CHEMISTRY METHOD 07/17/2024 2:05 PM [facility] Creatinine 0.83 0.50 - 1.10 mg/dL LAB CHEMISTRY METHOD 07/17/2024 2:05 PM [facility] eGFR 91 >=60 mL/min/1. 73m2 LAB CHEMISTRY METHOD 07/17/2024 2:05 PM [facility] Comment:Calculation based on the??Chronic Kidney Disease Epidemiology Collaboration (CKD-EPI) equation refit??without adjustment for race. BUN/Creatinine Ratio 6.0 LAB CHEMISTRY METHOD 07/17/2024 2:05 PM [facility] Calcium 10.7(H) 8.5 - 10.5 mg/dL LAB CHEMISTRY METHOD 07/17/2024 2:05 PM [facility] AST (SGOT) 16 10 - 42 unit/L LAB CHEMISTRY METHOD 07/17/2024 2:05 PM [facility] ALT (SGPT) 16 10 - 60 unit/L LAB CHEMISTRY METHOD 07/17/2024 2:05 PM [facility] Alkaline Phosphatase 113 42 - 121 unit/L LAB CHEMISTRY METHOD 07/17/2024 2:05 PM [facility] Total Protein 8.2(H) 6.0 - 8.0 g/dL LAB CHEMISTRY METHOD 07/17/2024 2:05 PM [facility] Albumin 4.3 3.2 - 5.0 g/dL LAB CHEMISTRY METHOD 07/17/2024 2:05 PM [facility] Total Bilirubin 0.7 0.0 - 1.4 mg/dL LAB CHEMISTRY METHOD 07/17/2024 2:05 PM [facility] Blood Venous blood specimen / Unknown Venipuncture / Unknown 07/17/2024 11:55 AM EDT 07/17/2024 11:55 AM EDT us Noah CARRERA LAB BLOOD ORDERABLES Fi nal Result [facility] [address] [place] [address], * Lipid panel with reflex to direct LDL (05/03/2024 8:09 AM EST) Cholesterol 172 0 - 200 mg/dL LAB CHEMISTRY METHOD 05/03/2024 10:16 AM EST [facility] Triglycerides 90 0 - 150 mg/dL LAB CHEMISTRY METHOD 05/03/2024 10:16 AM EST [facility] HDL 59 >=40 mg/dL LAB CHEMISTRY METHOD 05/03/2024 10:16 AM [facility] LDL Calculated 95 0 - 100 mg/dL LAB CHEMISTRY METHOD 05/03/2024 10:16 AM [facility] VLDL Cholesterol Olvin 18 mg/dL LAB CHEMISTRY METHOD 05/03/2024 10:16 AM [facility] Non HDL Chol. (LDL+VLDL) 113 <145 mg/dL LAB CHEMISTRY METHOD 05/03/2024 10:16 AM [facility] Chol/HDL Ratio 2.9 0.0 - 4.4 LAB CHEMISTRY METHOD 05/03/2024 10:16 AM [facility] Blood Venous blood specimen / Unknown Venipuncture / Unknown 05/03/2024 8:09 AM EST 05/03/2024 8:09 AM EST Noah CARRERA LAB BLOOD ORDERABLES Fi nal Result [facility] [address] [place] [address], * Pap Smear (08/02/2022) Pap smear No interpretation , Abstracted Historical Provider HEALTH MAINTENANCE Final Result from Last 3 Months or Most Recently Relevant to Health Maintenance Insurance [facility] MEDICAID - [place] Care Teams Technology Architect Relationship Specialty Start Date End Date Azeem Humphrey MD [address] [place] [phone] PCP - General Internal Medicine 03/14/24
--- OUTSIDE RECORDS SUMMARY | 2024-09-22 15:24 | XMS_ITS | Encounter Summary ---
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 Name Role Phone Azeem Humphrey MD Primary Care Provider [phone] Reason for Referral * Imaging (Routine) - Pending Review Specialty Diagnoses / Procedures Referred By Ivania schwartz Referred To Contact Radiology Diagnoses BI-RADS category 3 mammogram result Procedures [facility] Mammo Digital Diagnostic w Ramila Perry PA [address] [address] Phone: tel: fax: [address] [phone] Phone: tel: Referral ID Status Reason Start Date Expiration Date V isits Requested Visits Authorized [id number] Pending Review 05/13/2024 05/13/2025 1 1 Reason for Visit * Imaging (Routine) - Pending Review Specialty Diagnoses / Procedures Referred By Ivania schwartz Referred To Contact Radiology Diagnoses BI-RADS category 3 mammogram result Procedures [facility] Mammo Digital Diagnostic w Aris Ramila Brannon PA [address] [address] Phone: tel: fax: [address] [phone] Phone: tel: Referral ID Status Reason Start Date Expiration Date V isits Requested Visits Authorized [id number] Pending Review 05/13/2024 05/13/2025 1 1 Encounter Details Date Type Department Care Team (Latest Contact Info) Description 09/17/2024 9:57 AM EDT - 09/17/2024 11:59 PM EDT Hospital [facility] [address] [phone] BI-RADS category 3 mammogram result Discharge Disposition: Home or Self Care Social History Tobacco Use Types Packs/Day Years [...] - Inhaled Oxygen Concentration - - Weight - - Height 162.6 cm (5' 4 ) 09/17/2024 10:10 AM EDT Body Mass Index - - documented in this encounter Medications at Time of Discharge acetaminophen (TYLENOL) 500 mg tablet Take 2 Tablets by mouth every 8 hours for 30 days. 08/24/2023 blood sugar diagnostic (FreeStyle Lite Strips) test strip To check BS once daily E11.9 06/02/2023 cyclobenzaprine (FLEXERIL) 5 mg tablet Take 1 tablet (5 mg total) by mouth 3 (three) times a day if needed for muscle spasms. Do not drive or operate machinery after taking this due to potential drowsiness. 60 tablet 1 09/16/2024 5 diclofenac (VOLTAREN) 1 % topical gel APPLY 1 G TOPICALLY 4 TIMES DAILY NEEDED (PAIN). 100 g 3 05/20/2024 ergocalciferol (VITAMIN D-2) 1,250 mcg (50,000 unit) capsule Take 1 capsule (50,000 Units total) by mouth 1 (one) time per week. 4 each 11 04/25/2024 5 gabapentin (NEURONTIN) 300 mg capsule Take 1 capsule (300 mg total) by mouth 2 (two) times a day. Take 1 Capsule by mouth 2 times daily. 180 capsule 1 08/22/2024 omeprazole (PriLOSEC) [address] capsule TAKE 1 CAPSULE BY MOUTH DAILY FOR 360 DAYS. 90 capsule 1 04/15/2024 omeprazole OTC (PriLOSEC OTC) 20 mg EC tablet Take 1 Tablet by mouth 3 times daily. ondansetron ODT (ZOFRAN-ODT) 4 mg disintegrating tablet DISSOLVE 1 TABLET UNDER THE TONGUE EVERY 8 HOURS NEEDED FOR NAUSEA FOR UP TO 7 DAYS. 09/18/2023 predniSONE (DELTASONE) 20 mg tablet Take 3 tabs for 3 days, take 2 tabs for 3 days, take 1 tab for 3 days 18 tablet 07/17/2024 sertraline (ZOLOFT) 25 mg tablet TAKE 1 TABLET BY MOUTH EVERY DAY 90 tablet 1 05/02/2024 simethicone (MYLICON) 80 mg chewable tablet Take 1 Tablet by mouth every 6 hours as needed for Flatulence for up to 30 days. 08/24/2023 documented as of this encounter Discharge Disposition Disposition Code Departure Means Destination Home or Self Care documented in this encounter Plan of Treatment Upcoming Encounters Date Type Department Care Team (Late st Contact Info) Description 09/24/2024 10:00 AM EDT Office Visit Bariatric Surgery [facility] [address] [phone] Dee Dee Tian, DEANDRE [address] [address] 10/11/2024 9:45 AM EDT Office Visit Adult Medicine [facility] [address] [place] [phone] Azeem Humphrey MD [address] [place] [phone] 03/25/2025 7:30 AM EST Appointment [facility] [address] [phone] 04/09/2025 9:00 AM EST Office Visit Adult Medicine [facility] [address] [place] [address] Azeem Humphrey MD [address] [place] [address] documented as of this encounter Procedures Procedure Name Priority Date/Time Associated Diagnosis Comments MG MAMMO DIGITAL DIAGNOSTIC W ARIS BILAT Routine 09/17/2024 10:51 AM EDT BI-RADS category 3 mammogram result documented in this encounter Results * [facility] Mammo Digital Diagnostic w Aris [...] left breast in 6 months. Mammo Location: [facility], [facility], [address] [place] [address] -------- FINAL REPORT -------- Dictated By: Shahab Serrano Dictated Date: 09/17/2024 10:35 ET Assigned Physician: Shahab Serrano Reviewed and Electronically Signed By: Shahab Serrano Signed Date: 09/17/2024 10:47 ET Workstation ID: [id number] Transcribed By: Self Edit Transcribed Date: 09/17/2024 [...] MLO and CC projection is performed in theDrAvailableographe 2000-D unit. Computer aided detection utilizing the [...] left breast in 6 months. Mammo Location: [facility], [facility], [address] [place] [address] -------- FINAL REPORT -------- Dictated By: Shahab Serrano Dictated Date: 09/17/2024 10:35 ET Assigned Physician: Shahab Serrano Reviewed and Electronically Signed By: Shahab Serrano Signed Date: 09/17/2024 10:47 ET Workstation ID: [id number] Transcribed By: Self Edit Transcribed Date: 09/17/2024 10:35 ET us Ramila CARRERA IMG BI PROCEDURES Final Result documented in this encounter Visit Diagnoses Diagnosis BI-RADS category 3 mammogram result documented in this encounter Additional Health Concerns Assessment Noted Time PHQ-9 Depression Total Score: 13 07/17/ 025 10:15 AM EDT documented as of this encounter Care Teams Hides And Skins Colorer Relationship Specialty Start Date End Date Azeem Humphrey MD [address] [place] [phone] PCP - General Internal Medicine 03/14/24 documented as of this encounter
[2024-09-22] MEDS: gadobutroL 7.5 ML VIAL IVPUSH (16:07)
== END 2024-09-22 15:23 | disposition home or self-care (01) ==
LOC: HO.MRI 15:22
PROVIDERS: PCP Internal Medicine; Visit Provider Physician Assistant
DX: M54.16 Radiculopathy, lumbar region (principal)
CPT/HCPCS: 72158; A9585

== ENCOUNTER → 2024-09-22 15:22 | Outpatient (BNV) | payer OTHER, MEDICAID, SELFPAY | PROVIDERS: PCP Internal Medicine; Visit Provider Radiology Diagnostic Radiology | DX: M51.369 Other intervertebral disc degeneration, lumbar region without mention of lumbar back pain or lower extremity pain (principal); M47.817 Spondylosis without myelopathy or radiculopathy, lumbosacral region | CPT/HCPCS: 72158 ==

== ENCOUNTER 2024-09-23 08:00 | Outpatient (RCR) | payer OTHER, MEDICAID, SELFPAY ==
[2024-08-15 08:12] VITALS: BP 128/68; PULSE 98; O2SAT 84
--- NOTE | 2024-09-16 10:41 | MHC.PT.OD ---
[facility] [place] [facility] [place] [facility] [place] [facility] [address] Danish Rizzo [address] [phone] F: [phone] F: [phone] F: [phone] F: [phone] Physical Therapy Daily Note Diagnosis: Lumbar radiculopathy, date of script 08/06/24: Eval and treat; 2x-3x/week x 4-6 weeks, lumbar radiculopathy script signed by WON Fritz date of script 08/06/24. Date of Surgery: 04/25/24 Date of Evaluation: 08/15/24 Date of Treatment: 09/16/24 Treatments to Date: 6 Cancellations to Date: No Shows to Date: Authorized Visits: Insurance End Date: Precautions/ Contraindications:DOS 04/25/24 Subjective: Pt states she continues to have ongoing pain radiating down her L leg. Therapy exercises are helpful in reducing pain at time but do not relieve sx completely. Pain Score and Location: 3 L SI Objective Flowsheet: Tests & Measures Exercises Seated Stepper distance seat #21 for UE #4 and LE x 15 minutes with MHP applied to L/S at start of session. Pelvic tilt x 2 set 10R, hook-lying TAC july, hook-lying tac july with ankle DF and then with PF x 2 set 10R, hook-lying hip adduction x 2 sets 10R, SL hip abduction in x 5R for L side, not tolerated on R side, Seated and standing lumbar trunk side-bend stretch x 20 sec hold x 4R, isometric quad set ROCKTAPE support V strip for L knee trialed with positive response for support. Education re: application/removal/indications for use. Gait training with RW, 200ft to encourage larger steps, promote upright relaxed posturing with shoulders. Encouragement for neutral positioning and symmetrical weight-bearing. Encouragement for change in position often. MR/MR knee LT wo con IMPRESSION: 1. Increased T2 signal within the lateral superior aspect of Hoffa's fat pad, just beneath the patella. There is also increased signal within the inferior lateral aspect of the pre-femoral fat pad. 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 2. Patella godwin. 3. The menisci, cruciates, and major ligamentous structures are intact. 4. There are no bone marrow signal abnormalities. Electronically signed by: Thom Wu MD 08/28/2024 08:22 AM EDT Dictated By:Thom Wu MD Signed By:<Electronically signed by Thom Wu MD in OV>08/28/24 0822 Modalities Assessment: 09/16/24: Pt has attended 6 sessions of PT starting therapy 32 days ago. Overall since start of care she has been given knee/hip/core stabilization/stretching activities. She continues to report near constant radiculopathy sx in her L LE radiating down to the height of the L ankle. Pt has found some activities to ease her pain but states she it continues to persist. She was also seen by ortho to address her L knee (had MRI see record). She has been given stabilization activities with good response. She continues to require use of rollator due to stability of her L knee and back pain. She has been taking gabapentin and muscle relaxers with some positive impact. She will benefit from a follow up with [facility] and/or MRI to due to ongoing sx unrelieved completely by PT. She is compliant in her home program. She will be seeing her PCP Dr. Humphrey of [place] in the beginning of October. 09/05/24 Pt expressing a reduction in L knee pain with taping trial. Verbalized improving tolerance for mobility within the home setting at times, short relief with lumbar stabilization activities. Pt continues to require use of rollator style walker for support. 09/02/24: Pt had L knee MRI (see results). Pt trialed with ROCKTAPE application for V suppport strap (educated re: application/removal/goals). Pt issued written HEP isometric QS with and without towel roll. Pt continues to exhibit weakness and near constant parathesias in L LE. Pt weak in L quad activation compared to R LE. 08/28/24; Pt with positive response to trial of STM/taping. Pt has gone back on gabapentin medication which she states has been helpful to her. Rates sx as 3/10 in L LE today. Has been trying to walk more at home. 08/22/24; Pt trialed with R SL figure 4 turn with pillow between the knees with positive centralization noted, prone lying sit<>stand and stand<>sit with push off, standing TKE with no added resistance. Pt to see orthopedics today for L knee referral. Pt expresses relief with prone lying>figure 4 in R SL for centralization. Pt encouraged to take larger steps with RW and continue use of walker for support. Pt is a RHD 39 y/o female, referred to PT for treatment of Lumbar radiculopathy, date of script 08/06/24: Eval and treat; 2x-3x/week x 4-6 weeks, lumbar radiculopathy script signed by WON Fritz date of script 08/06/24. Pt is s/p ; Arpan Viera MD, PhD~ Operative Note Date of Service: 04/25/24 Narrative: Preoperative diagnosis: Left sacroiliitis Postoperative diagnosis: Same Operative procedure: Left sacroiliac joint fusion with 1 allograft implant Pt would benefit from attending skilled PT services at a frequency of 2x-3x/week x 4-6 weeks to address impairments, implement HEP to restore functional mobility tolerance to resume PLOF. Pt exhibits significant standing/gait instability related to weakness in her L LE, presents using a cane but was advised to return to using a walker to aide in safety. She has inability to extend her L great toe, reports knee buckling with instability and report near constant of sx L LE radiculopathy down to plantar aspect of her foot. She reports significant limitation in her ability to drive, sit, and states at for the past two years she has been sleeping downstairs in her home due to sx with stairs and back pain. She would benefit from an MRI to rule out HNP as she is unable to perform SLS, or ankle movement with good control on her L LE. Pt reported positive response to use of gabapentin but states she has been without refills (unable to receive refill from her surgeon office. Pt states she did contact her PCP Dr. Humphrey office to inquire about refill of this medication (was previously prescribed by Dr. Bonilla.) Tank you for this referral. PT Plan: Anticipate transition to I HEP in 2 visits- will benefit from reassessment next session Short Term Goals: 1. Initiate core stabilization program. 2. Centralize L LE sx to the height of the knee. 3. Pt will demonstrate good body mechanics 3:3 trial. 4. Proper hand placement for functional transfers. 5 Use walker to maximize safety and reduce risk of falls. Senior Care Goals: 1. Centralize L LE sx to height of L/S. 2. Strengthen L hip abd 5/5. 3. Strengthen L hip ext 5/5. 4. Pt will demonstrate I HEP. 5. Stair neogotiation reciprocaly with good dynamic balance. Electronically signed by: Antonina Saleh, PT, DPT
== END 2024-10-29 07:47 | disposition home or self-care (01) ==
LOC: HO.PTS 08:00
PROVIDERS: Visit Provider Physician Assistant
DX: M54.16 Radiculopathy, lumbar region (principal)
CPT/HCPCS: 97110; 97116; 97140; 97162

== ENCOUNTER 2024-10-15 10:10 | Outpatient (AMB) | payer OTHER, MEDICAID, SELFPAY ==
[2024-10-15 10:15] VITALS: BMI 28.0
--- NOTE | 2024-10-15 10:15 | MHC.OFFVIS ---
Vital Signs 10/15/24 10:15 Height 5 ft 4 in Weight 163 lb BMI 28.0 Intake Visit Reasons: OV- LT knee MRI review Intake Note: Beatris is a 39 year old female who presents today for a MRI review of the left knee. The patient reports intermittent discomfort along the medial aspect of her left knee. She also has chronic low back pain. She is due to see Dr. Bonilla in the near future for a back injection. She states that her left knee will give out intermittently. Allergies No Known Allergies Allergy (Verified 10/15/24 10:15) Medication List - Last Reconciled 10/15/24 by Eusebio Lim MD acetaminophen 1,000 mg PO Q8H ergocalciferol (vitamin D2) 1,250 mcg PO QWEEK gabapentin 400 mg PO TID gabapentin mg PO medroxyprogesterone mg IM omeprazole 20 mg PO DAILY sertraline 25 mg PO DAILY simethicone 80 mg PO Q6H PRN PFSH Medical History DDD (degenerative disc disease), lumbosacral Depression Orthostatic hypotension Palpitations GERD (gastroesophageal reflux disease) Sacroiliac joint dysfunction of left side Surgical History Hx of wisdom tooth extraction Hx of section Hx of gastric bypass Social History Are you a primary dialysis patient care technician to a significant other at home: No Do you presently have visiting nurse or other home services: No Patient Tobacco Use Status: Never used Tobacco Physical Exam Vital Signs: BMI result Body Mass Index 28.0 Const Other: Well-nourished well-developed very friendly female awake alert and oriented x3 in no acute distress Extrem Other: Bilateral lower extremity examination shows good capillary refill, no skin lesions noted, normal sensation light touch Left knee examination shows a minimal effusion, minimal crepitus with range of motion, tenderness along her medial joint line, positive Aldo's test, no instability Results Reviewed Results Reviewed: MRI of the patient's left knee shows mild diffuse degenerative changes as well as a small tear of the medial meniscus, no acute bony abnormalities Assessment & Plan Assessment & Plan (1) Tear of medial meniscus of left knee: Code(s): S83.242A - Other tear of medial meniscus, current injury, left knee, initial encounter Category: Medical Plan Ms. Mohan presents with intermittent left knee discomfort due to a small medial meniscus tear. I had a lengthy discussion with the patient regarding the treatment options. At this point the patient's symptoms are tolerable to her. We will hold off on a cortisone injection. She wishes to hold off on surgery for as long as possible. I agree with this plan. She will follow up with me on an as-needed basis. Feel free to call me at any time should questions regarding her orthopedic management arise. I spent 20 minutes in reviewing the patient's records and imaging studies, seeing the patient and documenting in the medical record. Coding Level of Care Code Est Pt Level 3 (22801) Complex EM visit Add On G2211 Diagnoses Tear of medial meniscus of left knee S83.242A
== END 2024-10-15 10:33 | disposition home or self-care (01) ==
LOC: HO.HOS 10:11
PROVIDERS: PCP Internal Medicine; Visit Provider Orthopaedic Surgery
DX: S83.242A Other tear of medial meniscus, current injury, left knee, initial encounter (principal)
CPT/HCPCS: 99213

== ENCOUNTER 2024-11-18 09:47 | Outpatient (AMB) | payer OTHER, MEDICAID, SELFPAY ==
--- NOTE | 2024-11-18 10:00 | HO.SPINEOV ---
Intake Visit Reasons: recurring pain after surgery Intake Note: Ms. 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 She reports that for the 1st couple of months after surgery she had good relief of her left-sided low back pain and shooting pains into her left lateral hip/knee. Today, she reports that her symptoms have returned. Her pain feels very similar to the pain she experienced before surgery. She was worked up by our colleagues in Orthopedics who did identify a small medial meniscus tear of the left knee, however their conclusion was that she should not have surgery at this time and should pursue conservative measures for this. We did get her a repeat lumbar MRI after she was last seen in clinic by DEANDRE Hernandez, which is generally unremarkable aside from some mild disc degeneration at L4-5, L5-S1. Unfortunately, it sounds like the left-sided SI joint fusion surgery was not successful in terms of relieving the patient's pain symptoms. She reports that throughout the day she is in constant pain, which worsens with prolonged sitting such as long car rides. She is particularly concerned about this as she needs to return back to work and person starting in January, and we will need to drive about 40 minutes out toward [place] twice a week. Exam: No new neurological deficits. The patient ambulates with the assistance of a walker. She is able to rise from a seated position without much difficulty and is able to get up onto the examination table during this visit. She has what I would call 4/5 strength of the left lower extremity, however she does report that this is largely pain limited as she experiences severe low back pain when attempting to engage full strength in her left lower extremity. Her right lower extremity has full 5/5 strength. She has no significant sensational deficits reported on examination today. Imaging: MRI of the lumbar spine completed here at [facility] shows mild disc degeneration at L4-5, L5-S1, with no significant central canal or foraminal stenosis appreciated. Plan: I do not believe that there is a continued role for neurosurgery in the care of this patient, based on her clinical history and recent MRI imaging. I think the patient would be best served following up with our colleague Dr. Bonilla for discussion regarding long-term pain control. Inocente Viera MD,PhD [facility] Coding Level of Care Code Est Pt Level 2 (46742) Diagnoses Sacroiliac joint dysfunction of left side M53.3
--- OUTSIDE RECORDS SUMMARY | 2024-11-18 10:18 | XMS_ITS | Clinical Summary ---
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 024 Active simethicone (MYLICON) 80 mg chewable tablet Take 1 Tablet by mouth every 6 hours as needed for Flatulence for up to 30 days. 024 Active acetaminophen (TYLENOL) 500 mg tablet Take 2 Tablets by mouth every 8 hours for 30 days. 024 Active blood sugar diagnostic (FreeStyle Lite Strips) test strip To check BS once daily E11.9 024 Active omeprazole OTC (PriLOSEC OTC) 20 mg EC tablet Take 1 Tablet by mouth 3 times daily. Active ergocalciferol (VITAMIN D-2) 1,250 mcg (50,000 unit) capsule Take 1 capsule (50,000 Units total) by mouth 1 (one) time per week. 4 each 11 024 2024 Active Additional Information Patient not taking.Reported on 10/11/2024 diclofenac (VOLTAREN) 1 % topical gel APPLY 1 G TOPICALLY 4 TIMES DAILY NEEDED (PAIN). 100 g 3 025 Active predniSONE (DELTASONE) 20 mg tablet Take 3 tabs for 3 days, take 2 tabs for 3 days, take 1 tab for 3 days 18 tablet 025 Active Additional Information Patient not taking.Reported on 10/11/2024 gabapentin (NEURONTIN) 300 mg capsule Take 1 capsule (300 mg total) by mouth 2 (two) times a day. Take 1 Capsule by mouth 2 times daily. 180 capsule 1 025 Active omeprazole (PriLOSEC) [address] capsule Take 1 capsule (20 mg total) by mouth 1 (one) time each day. Do not crush or chew. 90 capsule 1 025 2024 Active predniSONE (DELTASONE) 20 mg tablet 3 tabs po x 5 days then 2 tabs po x 5 days then 1 tab po x 5 days 30 each 5 025 Active cyclobenzaprine (FLEXERIL) 5 mg tablet TAKE 1 TABLET BY MOUTH 3 TIMES A DAY IF NEEDED FOR MUSCLE SPASMS. DO NOT DRIVE OR OPERATE MACHINERY AFTER TAKING THIS DUE TO POTENTIAL DROWSINESS. 60 tablet 5 025 Active sertraline (ZOLOFT) 25 mg tablet TAKE 1 TABLET BY MOUTH EVERY DAY 90 tablet 1 025 Active sertraline (ZOLOFT) 25 mg tablet TAKE 1 TABLET BY MOUTH EVERY DAY 90 tablet 1 024 2024 Discontinued cyclobenzaprine (FLEXERIL) 5 mg tablet Take 1 tablet (5 mg total) by mouth 3 (three) times a day if needed for muscle spasms. Do not drive or operate machinery after taking this due to potential drowsiness. 60 tablet 1 025 2024 Discontinued Active Problems Problem Noted Date Diagnosed Date Bariatric surgery status 03/26/2024 Overweight (BMI 25.0-29.9) 03/26/2024 Orthostatic hypotension 12/19/2023 Overview (02/13/2024): Orthostatic hypotension Palpitations 12/19/2023 Overview (02/13/2024): Palpitations Sacroiliitis (CMS/[facility] V24) 12/19/2023 DDD (degenerative disc disease), lumbosacral 04/2017 Overview (02/13/2024): L4-5, L5-S1 Depression 08/17/2016 Hidradenitis suppurativa 08/17/2016 Myofascial muscle pain 08/17/2016 Resolved Problems Problem Noted Date Diagnosed Date Resolved Date Class 1 obesity with body ma ss index (BMI) of 31.0 to 31.9 in adult 04/18/2023 07/02/2024 Encounters Date Type Department Care Team Description 10/11/2024 9:45 AM EDT Office Visit Adult Medicine [address] [phone] Azeem Humphrey MD Sacroiliitis ([facility] V24) (Primary Dx); S/P fusion of sacroiliac joint; Chronic low back pain with sciatica, sciatica laterality unspecified, unspecified back pain laterality 10/11/2024 Telephone Adult Medicine [address] [phone] Azeem Humphrey MD Forms/questionnaires 09/24/2024 10:00 AM EDT Office Visit Bariatric Surgery - [address] [place] [address] Dee Dee Tian PA Overweight (BMI 25.0-29.9) (Primary Dx); Bariatric surgery status 09/17/2024 9:57 AM EDT - 09/17/2024 11:59 PM EDT [facility] [address] [place] [address] BI-RADS category 3 mammogram result Discharge Disposition: Home or Self Care from Last 3 Months Immunizations Name Administration Dates Next Due DTP 03/22/1986, 5,02/20/1984,11/19 Hepatitis B (Krirxzh-C-Sfjnl , Recombivax HB-Adult) 19yo and older 04/12/2011 [...] y and depression DM (diabetes mellitus) (CMS/ [facility] V24, CMS/[facility] V28) DX:DM (diabetes mellitus) (H CC) Difficulty [...] care for your loved ones. For example, rn maternal child or elderly care for an older [...] Sign Reading Time Taken Comments Blood Pressure 118/80 10/11/2024 9:21 AM EDT Pulse 98 10/11/2024 9:21 AM EDT Temperature 36.4 C (97.5 F) 10/11/2024 9:21 AM EDT Respiratory Rate 14 10/11/2024 9:21 AM EDT Oxygen Saturation 97% 10/11/2024 9:21 AM EDT Inhaled Oxygen Concentration - - Weight 82.1 kg (181 lb) 10/11/2024 9:21 AM EDT Height 162.6 cm (5' 4 ) 10/11/2024 9:21 AM EDT Body Mass Index 31.07 10/11/2024 9:21 AM EDT Plan of Treatment Upcoming Encounters Date Type Department Care Team (Late st Contact Info) Description 01/14/2025 8:00 AM EDT Office Visit Bariatric Surgery - [place] [address] [phone] Dee Dee Tian PA [address] [phone] 03/25/2025 7:30 AM EST Appointment [facility] [address] [place] [phone] 04/09/2025 9:00 AM EST Office Visit Adult Medicine [address] [phone] Azeem Humphrey MD [address] [place] [phone] Health Maintenance Due Date Last Done Comments Pneumococcal Vaccine: Pediatrics (0 to 5 Years) and At-Risk Patients (6 to 49 Years) (1 of 2 - PCV) 07/11/2002 [...] AM EDT BI-RADS category 3 mammogram result LIPID PANEL WITH REFLEX TO DIRECT LDL Routine 05/03/2024 8:09 AM EST Routine history and physical examination of adult PAP SMEAR Routine 08/02/2022 from Last 3 Months or Most Recently Relevant to Health Maintenance Results * (ABNORMAL) Vitamin D 25 hydroxy (09/20/2024 3:46 PM EDT) Pathologist [facility] Vit D, 25-Hydroxy 90.5(H) 30.0 - 80.0 ng/mL LAB CHEMISTRY METHOD 09/20/2024 8:29 PM EDT [facility] Blood Venous blood specimen / Unknown Venipuncture / Unknown 09/20/2024 3:46 PM EDT 09/20/2024 3:46 PM EDT Noah CARRERA LAB BLOOD ORDERABLES Fi nal Result Performing Organization Address City/[facility]/ZIP Co de Phone Number [facility] [address] [place] [address], [place] [phone] * Parathyroid hormone intact (09/20/2024 3:46 PM EDT) [facility] PTH 50.2 18.5 - 88.0 pcg/mL LAB CHEMISTRY METHOD 09/20/2024 8:29 PM EDT [facility] Blood Venous blood specimen / Unknown Venipuncture / Unknown 09/20/2024 3:46 PM EDT 09/20/2024 3:46 PM EDT Noah CARRERA LAB BLOOD ORDERABLES Fi nal Result [facility] [address] [place] [address], [place] [phone] * (ABNORMAL) Basic metabolic panel (09/20/2024 3:46 PM EDT) [facility] Sodium 142 133 - 145 mmol/L LAB CHEMISTRY METHOD 09/20/2024 7:52 PM EDT [facility] Potassium 3.9 3.5 - 5.5 mmol/L LAB CHEMISTRY METHOD 09/20/2024 7:52 PM [facility] Chloride 110 96 - 110 mmol/L LAB CHEMISTRY METHOD 09/20/2024 7:52 PM [facility] CO2 24 21 - 32 mmol/L LAB CHEMISTRY METHOD 09/20/2024 7:52 PM [facility] Anion Gap 8 3 - 11 LAB CHEMISTRY METHOD 09/20/2024 7:52 PM [facility] Glucose 131(H) 70 - 100 mg/dL LAB CHEMISTRY METHOD 09/20/2024 7:52 PM [facility] BUN 13 5 - 25 mg/dL LAB CHEMISTRY METHOD 09/20/2024 7:52 PM [facility] Creatinine 0.68 0.50 - 1.10 mg/dL LAB CHEMISTRY METHOD 09/20/2024 7:52 PM [facility] eGFR 112 >=60 mL/min/1. 73m2 LAB CHEMISTRY METHOD 09/20/2024 7:52 PM [facility] Comment:Calculation based on the Chronic Kidney Disease Epidemiology Collaboration (CKD-EPI) equation refit without adjustment for race. BUN/Creatinine Ratio 19.1 LAB CHEMISTRY METHOD 09/20/2024 7:52 PM [facility] Calcium 9.1 8.5 - 10.5 mg/dL LAB CHEMISTRY METHOD 09/20/2024 7:52 PM [facility] Blood Venous blood specimen / Unknown Venipuncture / Unknown 09/20/2024 3:46 PM EDT 09/20/2024 3:46 PM EDT us Noah CARRERA LAB BLOOD ORDERABLES Fi nal Result [facility] [address] [place] [address], * MG Mammo Digital Diagnostic w Aris bilat (09/17/2024 10:51 AM EDT) Anatomical Region Laterality Modality Breast Bilateral Mammography 09/17/2024 10:3 5 AM EDT Impressions 09/17/2024 10:47 AM EDT No mammographic evidence of malignancy. Stable appearance of bilobed 7 x 3 mm nodular density at the 2:00 position of the left breast 8 cm from the nipple. One more follow-up mammogram in the left breast in 6 months is recommended. BI-RADS CATEGORY: 3 - PROBABLY BENIGN RECOMMENDATION: Short Interval Follow-up is recommended for the left breast in 6 months. Mammo Location: [facility], [address] [place] [id number] -------- FINAL REPORT -------- Dictated By: Shahab Serrano Dictated Date: 09/17/2024 10:35 ET Assigned Physician: Shahab Serrano Reviewed and Electronically Signed By: Shahab Serrano Signed Date: 09/17/2024 10:47 ET Workstation ID: [id number] Transcribed By: Self Edit Transcribed Date: 09/17/2024 10:35 ET Narrative 09/17/2024 10:47 AM EDT CLINICAL: The patient is a 39 years Female presenting for follow-up of a left breast mass and for annual mammography of the right breast. COMPARISON: 08/23/2023 TECHNIQUE: Full-field digital mammography of the breasts bilaterally consisting of tomosynthesis in MLO and CC projection is performed in the [employer] 2000-D unit. Computer aided detection utilizing the iCAD system was utilized. FINDINGS: The breasts are again seen to be largely fatty replaced. Again seen is a bilobed density in the upper-outer quadrant of the left breast at the 2:00 position approximately 8 cm from the nipple, measuring approximately 7 x 3 mm, stable in appearance as compared to prior studies and is therefore again felt highly likely to be benign. No suspicious mass is seen in either breast. There is no cluster of microcalcifications, architectural distortion, skin thickening, or nipple retraction. TISSUE DENSITY: The breasts are almost entirely fatty. (BI-RADS Category A) Procedure Note Shahab Srerano MD - 09/17/2024 CLINICAL: The patient is a 39 years Female presenting for follow-up of aleft breast mass and for annual mammography of the right breast. COMPARISON: 08/23/2023 TECHNIQUE: Full-field digital mammography of the breasts bilaterallyconsisting of tomosynthesis in MLO and CC projection is performed in the[employer] 2000-D unit. Computer aided detection utilizing the Ticketbisystem was utilized. FINDINGS: The breasts are again [...] breast in 6 months. Mammo Location: [facility], [address] [place] [id number] -------- FINAL REPORT -------- Dictated By: Shahab Serrano Dictated Date: 09/17/2024 10:35 ET Assigned Physician: Shahab Serrano Reviewed and Electronically Signed By: Shahab Serrano Signed Date: 09/17/2024 10:47 ET Workstation ID: [id number] Transcribed By: Self Edit Transcribed Date: 09/17/2024 10:35 ET us Ramila CARRERA IMG BI PROCEDURES Final Result * Lipid panel with reflex to direct LDL (05/03/2024 8:09 AM EST) Cholesterol 172 0 - 200 mg/dL LAB CHEMISTRY METHOD 05/03/2024 10:16 AM [facility] Triglycerides 90 0 - 150 mg/dL LAB CHEMISTRY METHOD 05/03/2024 10:16 AM [facility] HDL 59 >=40 mg/dL LAB CHEMISTRY METHOD 05/03/2024 10:16 AM [facility] LDL Calculated 95 0 - 100 mg/dL LAB CHEMISTRY METHOD 05/03/2024 10:16 AM [facility] VLDL Cholesterol Olvin 18 mg/dL LAB CHEMISTRY METHOD 05/03/2024 10:16 AM [facility] Non HDL Chol. (LDL+VLDL) 113 <145 mg/dL LAB CHEMISTRY METHOD 05/03/2024 10:16 AM [facility] Chol/HDL Ratio 2.9 0.0 - 4.4 LAB CHEMISTRY METHOD 05/03/2024 10:16 AM [facility] Blood Venous blood specimen / Unknown Venipuncture / Unknown 05/03/2024 8:09 AM EST 05/03/2024 8:09 AM EST Noah CARRERA LAB BLOOD ORDERABLES Fi nal Result [facility] [address] [place] [address], * Hm Pap Smear (08/02/2022) Pap smear No interpretation , Abstracted Historical Provider HEALTH MAINTENANCE Final Result from Last 3 Months or Most Recently Relevant to Health Maintenance Insurance MEDICAID - [place] [facility] Care Teams Baseball Scout Relationship Specialty Start Date End Date Azeem Humphrey MD [address] [place] [phone] PCP - General Internal Medicine 03/14/24
== END 2024-11-18 10:15 | disposition home or self-care (01) ==
LOC: HO.HNS 09:48
PROVIDERS: PCP Internal Medicine; Visit Provider Physician Assistant
DX: M53.3 Sacrococcygeal disorders, not elsewhere classified (principal)
CPT/HCPCS: 99212

== ENCOUNTER 2025-03-13 07:41 | Outpatient (AMB) | payer OTHER, MEDICAID, SELFPAY ==
--- NOTE | 2025-03-13 07:42 | A.OFFVIS_ITS ---
Intake Visit Reasons: 2nd opinion on back Intake Note: 2nd opinion on back 01/10/25 L5-S1 Epidural Injection Allergies No Known Allergies Allergy (Verified 11/18/24 10:01) Medication List - Last Reconciled 03/13/25 by Dipak Bonilla DO acetaminophen 1,000 mg PO Q8H ergocalciferol (vitamin D2) 1,250 mcg PO QWEEK gabapentin mg PO medroxyprogesterone mg IM omeprazole 20 mg PO DAILY sertraline 25 mg PO DAILY simethicone 80 mg PO Q6H PRN HPI HPI 2nd opinion on back: Details: Patient returns for follow-up visit for persistent lower back pain. Pain is concentrated primarily on the left side. Her management up to this date included greater trochanteric bursa injections, SI joint injections with good but short-lived benefit. She ended up having left SI joint fusion in April 2024. She reported excellent pain relief of her symptoms for 1 month, unfortunately her pain returned. She has been on gabapentin 400 mg twice a day. She was recently prescribed hydrocodone. I spent some time reviewing our notes from our previous practice. Lumbosacral spine MRI was reviewed. MRI dated 09/22/2024. Small L5-S1 disc bulge was demonstrated. L4-L5 degenerative disc disease. Generally MRI was noncontributory. Most recently she received L5-S1 epidural injection on 01/10/2025 which provided excellent, but short-lived benefit. She has been having difficult time sleeping at night. She reports no side effects with gabapentin use. 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 Frequently she has to lay down for her work in order to alleviate the pain. She denies any change in bowel bladder habits. She denies any fever or chills. Pain is rated 7/10 at the worst moments. She had good relief with hydrocodone and tries to minimize use only for nighttime. Cyclobenzaprine did not work for her. She tried tizanidine in the past, however does not remember how much it worked. Procedures: Left GT bursa injection 08/25/2022 Left SI joint injection 09/30/2022 Bilateral L4-L5, L5-S1 facet joint injections 12/02/2022 Left SI joint injection 11/17/2023 L5-S1 CRESENCIO 01/10/2025 [facility] Medical History DDD (degenerative disc disease), lumbosacral Depression Orthostatic hypotension Palpitations GERD (gastroesophageal reflux disease) Sacroiliac joint dysfunction of left side Surgical History Hx of wisdom tooth extraction Hx of section Hx of gastric bypass Social History Are you a primary health care assistant to a significant other at home: No Do you presently have visiting nurse or other home services: No Patient Tobacco Use Status: Never used Tobacco Review of Systems Narrative Lower back pain, intermittent left leg pain, denies change in bowel bladder habits, denies fever or chills, denies uncontrolled depression or suicidal ideation. Physical Exam Exam Exam: Patient appears to be in no acute distress, appropriately conversant oriented. She was able to ambulate without antalgia. Gait was slow. Lumbar extension was restricted. Dural tension signs were negative. SI provocative maneuvers were positive on the left side. Heel walk and toe walk were not tested. Neurological examination of lower extremities was nonfocal. Patient demonstrated no upper motor neuron signs. Palpatory examination reveals tenderness with palpation over bilateral sacroiliac sulci. Bilateral paraspinal tenderness. Results Reviewed Results Reviewed: Lumbosacral spine MRI dated 09/22/2024 was reviewed. Degenerative disc disease at the L4-L5 and L5-S1 levels was demonstrated. Assessment & Plan Assessment & Plan (1) Sacroiliac joint dysfunction of left side: Code(s): M53.3 - Sacrococcygeal disorders, not elsewhere classified Category: Medical (2) Lumbar radiculopathy: Code(s): M54.16 - Radiculopathy, lumbar region Category: Medical (3) Low back pain associated with a spinal disorder other than radiculopathy or spinal stenosis: Code(s): M54.50 - Low back pain, unspecified Category: Medical (4) Chronic pain syndrome: Code(s): G89.4 - Chronic pain syndrome Category: Medical Plan Treatment options were discussed with the patient. I do not recommend any interventional procedures. We will concentrate on medication management. I will provide her with another prescription for hydrocodone. Prescription monitoring report was reviewed. We discussed narcotic nature of the medication, issue with tolerability and dependence. She will use the medication sporadically as needed only. I recommended increasing gabapentin to 600 mg twice a day and 1200 mg at bedtime. I will provide her with a prescription for tizanidine to take between 4 and 8 mg at bedtime as necessary. She will follow up in 1 month. All questions were answered to her satisfaction. Medications: New gabapentin Take 1 tablet twice a day and 2 tablets at bedtime. Recommend 1-2 hours before bedtime. 600 mg PO TID 120 tabs 1RF tizanidine Take 1-2 tablets at bedtime. 8 mg (2 x 4 mg) PO BEDTIME PRN 60 tabs 1RF muscle spasticity hydrocodone-acetaminophen 5-325 mg Partial Fill upon patient request. 1 tab PO QID PRN 28 tabs 0RF pain Coding Level of Care Code Est Pt Level 4 (24979) Complex EM visit Add On G2211 Diagnoses Sacroiliac joint dysfunction of left side M53.3 Lumbar radiculopathy M54.16 Low back pain associated with a spinal disorder other than radiculopathy or spinal stenosis M54.50 Chronic pain syndrome G89.4
--- OUTSIDE RECORDS SUMMARY | 2025-03-13 07:44 | XMS_ITS | Clinical Summary ---
Author Organization [facility] Address [address] [place] [address] Phone Care Team Providers Care Employment Law Attorney Name Role Phone Azeem Humphrey MD Primary Care Provider [phone] Allergies No known active allergies Medications ondansetron [...] 4 each 11 04/25/20 24 025 Active Additional Information Patient not taking.Reported on 10/11/2024 predniSONE (DELTASONE) 20 mg tablet Take 3 tabs for 3 days, take 2 tabs for 3 days, take 1 tab for 3 days 18 tablet 07/18/19 25 Active Additional Information Patient not taking.Reported on 10/11/2024 gabapentin (NEURONTIN) 300 mg capsule Take 1 capsule (300 mg total) by mouth 2 (two) times a day. Take 1 Capsule by mouth 2 times daily. 180 capsule 1 08/23/19 25 Active omeprazole (PriLOSEC) [address] capsule Take 1 capsule (20 mg total) by mouth 1 (one) time each day. Do not crush or chew. 90 capsule 1 10/02/19 25 025 Active predniSONE (DELTASONE) 20 mg tablet 3 tabs po x 5 days then 2 tabs po x 5 days then 1 tab po x 5 days 30 each 5 10/12/19 25 Active cholecalciferol (Vitamin D3) 50 mcg (2,000 unit) capsule Take 1 capsule (2,000 Units total) by mouth 1 (one) time each day. 30 each 2 01/15/20 25 025 Active cyclobenzaprine (FLEXERIL) 5 mg tablet Take 1 tablet (5 mg total) by mouth 3 (three) times a day if needed for muscle spasms. 90 tablet 2 02/07/20 25 Active diclofenac (VOLTAREN) 1 % topical gel Apply 1 g topically 4 (four) times a day if needed (for pain). 100 g 2 02/11/20 25 Active sertraline (ZOLOFT) 25 mg tablet Take 1 tablet (25 mg total) by mouth 1 (one) time each day. 90 tablet 02/11/20 25 Active semaglutide (Wegovy) 0.5 mg/0.5 mL injection pen Inject 0.5 mg under the skin every 7 (seven) days. 2 mL 03/07/20 25 025 Active semaglutide (Wegovy) 0.5 mg/0.5 mL injection pen Inject 0.5 mg under the skin every 7 (seven) days. 2 mL 02/08/20 25 025 Discontin ued(Reord er) Active Problems Problem Noted Date Diagnosed Date Bariatric surgery status 03/26/2024 Overweight (BMI 25.0-29.9) 03/26/2024 Orthostatic hypotension 12/19/2023 Overview (02/13/2024): Orthostatic hypotension Palpitations 12/19/2023 Overview (02/13/2024): Palpitations Sacroiliitis ([facility] V24) 12/19/2023 DDD (degenerative disc disease), lumbosacral 04/2017 Overview (02/13/2024): L4-5, L5-S1 Depression 08/17/2016 Hidradenitis suppurativa 08/17/2016 Myofascial muscle pain 08/17/2016 Resolved Problems Problem Noted Date Diagnosed Date Resolved Date Class 1 obesity with body ma ss index (BMI) of 31.0 to 31.9 in adult 04/18/2023 07/02/2024 Encounters Date Type Department Care Team Description 01/31/2025 Telephone Adult Medicine [address] [phone] Azeem Humphrey MD 01/14/2025 8:00 AM EDT Office Visit Bariatric Surgery - [address] [place] [address] Dee Dee Tian PA Class 2 severe obesity due to excess calories with serious comorbidity and body mass index (BMI) of 35.0 to 35.9 in adult ([facility] V24, [facility] V28) (Primary Dx); Bariatric surgery status 01/09/2025 Telephone Adult Medicine [address] [phone] Azeem Humphrey MD 12/30/2024 Nurse Triage Adult Medicine [address] [phone] Azeem Humphrey MD from Last 3 Months Immunizations Immunization Administration Dates Next Due DTP 03/22/1986, 5,02/20/1984,11/19 Hepatitis B (Zuvrpft-G-Yynqx , Recombivax HB-Adult) 19yo and older 04/12/2011 [...] DX:Anxiet y and depression DM (diabetes mellitus) ([facility] V24, [facility] V28) DX:DM (diabetes mellitus) (H [facility]) Difficulty [...] for your loved ones. For example, child welfare social worker or elderly care for an older [...] Date Recorded What is your living situation? Unrecognized valu e 04/04/2024 Comments No Sex and Gender Information Value Date Recorded Sex Assigned at Not on file Legal Sex Female 4:43 AM EST Gender Identity Not on file Sexual Orientation Not on file Obstetrics History Para Term AB IAB SAB Ectopic Multiple Livin g Live Births 4 Last Filed Vital Signs Vital Sign Reading Time Taken Comments Blood Pressure 155/93 01/14/2025 8:10 AM EDT Pulse 94 01/14/2025 8:10 AM EDT Temperature 36.4 C (97.5 F) 10/11/2024 9:21 AM EDT Respiratory Rate 14 10/11/2024 9:21 AM EDT Oxygen Saturation 97% 10/11/2024 9:21 AM EDT Inhaled Oxygen Concentration - - Weight 93.6 kg (206 lb 6.4 oz) 01/14/2025 8:10 A M EDT Height 162.6 cm (5' 4 ) 01/14/2025 8:10 AM EDT Body Mass Index 35.43 01/14/2025 8:10 AM EDT Plan of Treatment Upcoming Encounters Date Type Department Care Team (Late st Contact Info) Description 03/25/2025 7:30 AM EST Appointment [facility] at [address] [phone] 04/09/2025 9:00 AM EST Office Visit Adult Medicine [address] [phone] Azeem Humphrey MD [address] [place] [address] 06/09/2025 1:15 PM EST Office Visit Bariatric Surgery [address] [place] [phone] Dee Dee Tian, DEANDRE [address] [place] [address] Health Maintenance Due Date Last Done Comments Pneumococcal Vaccine: Pediatrics (0 to 5 Years) and At-Risk Patients (6 to 49 Years) (1 of 2 - PCV) 07/11/2002 HPV Vaccines (1 - 3-dose SCDM series) 07/11/2010 Hepatitis B Vaccines (2 of 3 - 19+ 3-dose series) 05/10/2011 04/12/2011 HIV Screening 04/10/2022 Hepatitis C Screening 04/10/2022 COVID-19 Vaccine ( season) 2025 04/19/2022, 12/26/2021, 01/23/2021, Additional history exists Social Influencers of Health Screening 04/04/2025 04/04/2024 Cervical Cancer Screening: Pap Smear 08/02/2025 08/02/2022 Breast Cancer Screening 09/17/2026 09/17/2024, 08/22 Cholesterol Screening (Lipid Panel) 05/03/2029 05/03/2024, 03/02/2023 DTaP,Tdap,and Td Vaccines (7 - Td or Tdap) 04/09/2034 04/09/2024, 12/25/2007, 03/22/1986, Additional history exists RSV Immunization Adult Patients (1 - 1-dose 75+ series) 07/11/2058 MMR Vaccines Completed 11/01/1984 IPV Vaccines Completed 03/22/1986, 06/08, 02/20/1984, Additional history exists Meningococcal ACWY Vaccine Aged Out 04/12/2011 N o longer eligible based on patient's age to complete this topic Depression Screening Completed 07/17/2024 HIB Vaccines Aged Out No longer eligi [...] Associated Diagnosis Comments COMPREHENSIVE METABOLIC PANEL Routine 01/13/2025 9:38 AM EDT Overweight (BMI 25.0-29.9) Bariatric surgery status IRON AND TIBC Routine 01/13/2025 9:38 AM EDT Overweight (BMI 25.0-29.9) Bariatric surgery status FOLATE Routine 01/13/2025 9:38 AM EDT Overweight (BMI 25.0-29.9) Bariatric surgery status ZINC Routine 01/13/2025 9:38 AM EDT Overweight (BMI 25.0-29.9) Bariatric surgery status VITAMIN D 25 HYDROXY Routine 01/13/2025 9:38 AM EDT Overweight (BMI 25.0-29.9) Bariatric surgery status VITAMIN B6 Routine 01/13/2025 9:38 AM EDT Overweight (BMI 25.0-29.9) Bariatric surgery status VITAMIN B12 Routine 01/13/2025 9:38 AM EDT Overweight (BMI 25.0-29.9) Bariatric surgery status VITAMIN B1 Routine 01/13/2025 9:38 AM EDT Overweight (BMI 25.0-29.9) Bariatric surgery status SELENIUM SERUM Routine 01/13/2025 9:38 AM EDT Overweight (BMI 25.0-29.9) Bariatric surgery status MG MAMMO DIGITAL DIAGNOSTIC W ARIS BILAT Routine 09/17/2024 10:51 AM EDT BI-RADS category 3 mammogram result LIPID PANEL WITH REFLEX TO DIRECT LDL Routine 05/03/2024 8:09 AM EST Routine history and physical examination of adult HM PAP SMEAR Routine 08/02/2022 from Last 3 Months or Most Recently Relevant to Health Maintenance Results * Iron and TIBC (01/13/2025 9:38 AM EDT) Iron 88 40 - 150 mcg/dL LAB CHEMISTRY METHOD 01/13/2025 10:48 AM EDT [facility] TIBC 313 250 - 450 mcg/dL LAB CHEMISTRY METHOD 01/13/2025 10:48 AM EDT [facility] Iron Saturation 28 15 - 50 % LAB CHEMISTRY METHOD 01/13/2025 10:48 AM EDT [facility] Blood Venous blood specimen / Unknown Venipuncture / Unknown 01/13/2025 9:38 AM EDT 01/13/2025 9:39 AM EDT Dee Dee CARRERA LAB BLOOD ORDERABLES Final R esult Performing Organization Address [facility] Co de Phone Number [facility] [address] [place] [address], * Zinc (01/13/2025 9:38 AM EDT) Zinc 78 60 - 130 ug/dL 01/15/2025 12:27 PM EDT [facility] Comment: Elevated results may be due to sample collected in a non-certified trace element-free tube. This test was developed and the performance characteristics determined by [facility]. It has not been cleared or approved by the FDA. The laboratory is regulated under CLIA as qualified to perform high-complexity testing. This test is used for patient testing purposes. It should not be regarded as investigational or for research. Test performed at [facility], [address] , [place] [address] Bell Lombardi MD, PhD - Clinical Information Systems Director Blood Venous blood specimen / Unknown Venipuncture / Unknown 01/13/2025 9:38 AM EDT 01/13/2025 9:39 AM EDT Dee Dee CARRERA LAB BLOOD ORDERABLES Final R esult Performing Organization Address [facility] Co de Phone Number [facility] [address] [place] [address] * Selenium serum (01/13/2025 9:38 AM EDT) Selenium 157 63 - 160 mcg/L 01/17/2025 1:40 PM EDT [facility] Comment: This test was developed and its analytical performance characteristics have been determined by [facility] [place], [place]. It has not been cleared or approved by the U.S. Food and Drug Administration. This assay has been validated pursuant to the CLIA regulations and is used for clinical purposes. Test Performed by [facility], [facility], [address], [place] Jonathan Esquivel M.D., Ph.D., Director of Laboratories , CLIA [id number] Blood Venous blood specimen / Unknown Venipuncture / Unknown 01/13/2025 9:38 AM EDT 01/13/2025 9:39 AM EDT Dee Dee CARRERA LAB BLOOD ORDERABLES Final R esult Performing Organization Address City/[facility]/ZIP Co de Phone Number [facility] [address] [place] [address] * (ABNORMAL) Vitamin D 25 hydroxy (01/13/2025 9:38 AM EDT) Vit D, 25-Hydroxy 28.8(L) 30.0 - 80.0 ng/mL LAB CHEMISTRY METHOD 01/13/2025 12:35 PM EDT [facility] Blood Venous blood specimen / Unknown Venipuncture / Unknown 01/13/2025 9:38 AM EDT 01/13/2025 9:39 AM EDT Dee Dee CARRERA LAB BLOOD ORDERABLES [facility] Performing Organization Address City/[facility]/ZIP Co de Phone Number [facility] [address] [place] [address], [place] [phone] * Vitamin B1 (01/13/2025 9:38 AM EDT) Pathologist [facility] Vitamin B1 Whole Blood 57 38 - 122 ug/L 01/16/2025 6:44 AM EDT [facility] Comment: This test was developed and the performance characteristics determined by [facility]. It has not been cleared or approved by the FDA. The laboratory is regulated under CLIA as qualified to perform high-complexity testing. This test is used for patient testing purposes. It should not be regarded as investigational or for research. Test performed at [facility], [address] [place] [address] Bell Lombardi MD, PhD - Clinical Information Systems Director Blood Venous blood specimen / Unknown Venipuncture / Unknown 01/13/2025 9:38 AM EDT 01/13/2025 9:39 AM EDT Dee Dee CARRERA LAB BLOOD ORDERABLES Final R esult [facility] [address] [place] [address] * Vitamin B6 (01/13/2025 9:38 AM EDT) Pathologist [facility] Vitamin B6 (Pyridoxine) Level 26 5 - 50 ug/L 01/16/2025 10:08 AM EDT [facility] Comment: This test was developed and the performance characteristics determined by [facility]. It has not been cleared or approved by the FDA. The laboratory is regulated under CLIA as qualified to perform high-complexity testing. This test is used for patient testing purposes. It should not be regarded as investigational or for research. Test performed at [facility], [address] [place] [address] Bell Lombardi MD, PhD - Clinical Information Systems Director Blood Venous blood specimen / Unknown Venipuncture / Unknown 01/13/2025 9:38 AM EDT 01/13/2025 9:39 AM EDT us Dee Dee CARRERA LAB BLOOD ORDERABLES Final R esult [facility] [address] [place] [address] * Folate (01/13/2025 9:38 AM EDT) Pathologist [facility] Folate 7.8 2.8 - 17.0 ng/ml LAB CHEMISTRY METHOD 01/13/2025 11:10 AM EDT [facility] Blood Venous blood specimen / Unknown Venipuncture / Unknown 01/13/2025 9:38 AM EDT 01/13/2025 9:39 AM EDT Dee Dee CARRERA LAB BLOOD ORDERABLES Final R esult Performing Organization Address City/[facility]/ZIP Co de Phone Number [facility] [address] [place] [address], [place] [phone] * Vitamin B12 (01/13/2025 9:38 AM EDT) Pathologist [facility] Vitamin B-12 855 250 - 900 pcg/mL LAB CHEMISTRY METHOD 01/13/2025 11:10 AM EDT [facility] Blood Venous blood specimen / Unknown Venipuncture / Unknown 01/13/2025 9:38 AM EDT 01/13/2025 9:39 AM EDT Dee Dee CARRERA LAB BLOOD ORDERABLES Final R esult Performing Organization Address City/[facility]/ZIP Co de Phone Number [facility] [address] [place] [address], [place] [phone] * (ABNORMAL) Comprehensive metabolic panel (01/13/2025 9:38 AM EDT) [facility] Sodium 138 133 - 145 mmol/L LAB CHEMISTRY METHOD 01/13/2025 10:48 AM EDT [facility] Potassium 4.2 3.5 - 5.5 mmol/L LAB CHEMISTRY METHOD 01/13/2025 10:48 AM EDT [facility] Chloride 103 96 - 110 mmol/L LAB CHEMISTRY METHOD 01/13/2025 10:48 AM EDT [facility] CO2 28 21 - 32 mmol/L LAB CHEMISTRY METHOD 01/13/2025 10:48 AM EDT [facility] Anion Gap 7 3 - 11 LAB CHEMISTRY METHOD 01/13/2025 10:48 AM [facility] Glucose 179(H) 70 - 100 mg/dL LAB CHEMISTRY METHOD 01/13/2025 10:48 AM [facility] BUN 8 5 - 25 mg/dL LAB CHEMISTRY METHOD 01/13/2025 10:48 AM [facility] Creatinine 0.67 0.50 - 1.10 mg/dL LAB CHEMISTRY METHOD 01/13/2025 10:48 AM [facility] eGFR 113 >=60 mL/min/1. 73m2 LAB CHEMISTRY METHOD 01/13/2025 10:48 AM [facility] Comment:Calculation based on the Chronic Kidney Disease Epidemiology Collaboration (CKD-EPI) equation refit without adjustment for race. BUN/Creatinine Ratio 11.9 LAB CHEMISTRY METHOD 01/13/2025 10:48 AM [facility] Calcium 10.2 8.5 - 10.5 mg/dL LAB CHEMISTRY METHOD 01/13/2025 10:48 AM [facility] AST (SGOT) 13 10 - 42 unit/L LAB CHEMISTRY METHOD 01/13/2025 10:48 AM [facility] ALT (SGPT) 23 10 - 60 unit/L LAB CHEMISTRY METHOD 01/13/2025 10:48 AM [facility] Alkaline Phosphatase 108 42 - 121 unit/L LAB CHEMISTRY METHOD 01/13/2025 10:48 AM [facility] Total Protein 6.7 6.0 - 8.0 g/dL LAB CHEMISTRY METHOD 01/13/2025 10:48 AM [facility] Albumin 3.4 3.2 - 5.0 g/dL LAB CHEMISTRY METHOD 01/13/2025 10:48 AM [facility] Total Bilirubin 0.5 0.0 - 1.4 mg/dL LAB CHEMISTRY METHOD 01/13/2025 10:48 AM [facility] Blood Venous blood specimen / Unknown Venipuncture / Unknown 01/13/2025 9:38 AM EDT 01/13/2025 9:39 AM EDT Dee Dee CARRERA LAB BLOOD ORDERABLES Final R esult [facility] [address] [place] [address], [place] [phone] * MG Mammo Digital Diagnostic w Aris [...] left breast in 6 months. Mammo Location: [facility], [facility], [address] [place] [id number] -------- FINAL REPORT -------- Dictated By: Shahab Serrano Dictated Date: 09/17/2024 10:35 ET Assigned Physician: Shahab Serrano Reviewed and Electronically Signed By: Shahab Serrano Signed Date: 09/17/2024 10:47 ET Workstation ID: [id number] Transcribed By: Self Edit Transcribed Date: 09/17/2024 10:35 ET Narrative 09/17/2024 10:47 AM EDT CLINICAL: The patient is a 39 years Female presenting for follow-up of a left breast mass and for annual mammography of the right breast. COMPARISON: 08/23/2023 TECHNIQUE: Full-field digital mammography of the breasts bilaterally consisting of tomosynthesis in MLO and CC projection is performed in the [employer] 2000-D unit. Computer aided detection utilizing the [...] fatty. (BI-RADS Category A) Procedure Note Shahab Serrano MD - 09/17/2024 CLINICAL: The patient is a 39 years Female presenting for follow-up of aleft breast mass and for annual mammography of the right breast. COMPARISON: 08/23/2023 TECHNIQUE: Full-field digital mammography of the breasts bilaterallyconsisting of tomosynthesis in MLO and CC projection is performed in the[employer] 2000-D unit. Computer aided detection utilizing the MD [employer] was utilized. FINDINGS: The breasts are again [...] left breast in 6 months. Mammo Location: [facility], [facility], [address] [place] [id number] -------- FINAL REPORT -------- Dictated By: Shahab Serrano Dictated Date: 09/17/2024 10:35 ET Assigned Physician: Shahab eSrrano Reviewed and Electronically Signed By: Shahab Serrano Signed Date: 09/17/2024 10:47 ET Workstation ID: [id number] Transcribed By: Self Edit Transcribed Date: 09/17/2024 10:35 ET Ramila CARRERA IMG BI PROCEDURES Final Result * Lipid panel with reflex to direct LDL (05/03/2024 8:09 AM EST) Cholesterol 172 0 - 200 mg/dL LAB CHEMISTRY METHOD 05/03/2024 10:16 AM EST [facility] Triglycerides 90 0 - 150 mg/dL LAB CHEMISTRY METHOD 05/03/2024 10:16 AM EST [facility] HDL 59 >=40 mg/dL LAB CHEMISTRY METHOD 05/03/2024 10:16 AM EST [facility] LDL Calculated 95 0 - 100 mg/dL LAB CHEMISTRY METHOD 05/03/2024 10:16 AM EST [facility] VLDL Cholesterol Olvin 18 mg/dL LAB CHEMISTRY METHOD 05/03/2024 10:16 AM EST [facility] Non HDL Chol. (LDL+VLDL) 113 <145 mg/dL LAB CHEMISTRY METHOD 05/03/2024 10:16 AM EST [facility] Chol/HDL Ratio 2.9 0.0 - 4.4 LAB CHEMISTRY METHOD 05/03/2024 10:16 AM [facility] Blood Venous blood specimen / Unknown Venipuncture / Unknown 05/03/2024 8:09 AM EST 05/03/2024 8:09 AM EST Noah CARRERA LAB BLOOD ORDERABLES Fi nal Result [facility] [address] [place] [address], [place] [phone] * Hm Pap Smear (08/02/2022) HM Pap smear No interpretation , Abstracted us Historical Provider HEALTH MAINTENANCE Final Result from Last 3 Months or Most Recently Relevant to Health Maintenance Insurance [place] Member Subscriber Plan / Payer (Ef fective 2024-Present) Name:JOHANA MOHAN Relation to Subscriber:Self Name:Johana Mohan Payer ID:[id number] Group ID:Not on file Type:Not on file Address: [facility] ATTN:[employer] [address] [place] [address] [facility] Care Teams Employment Law Attorney Relationship Specialty Start Date End Date Azeem Humphrey MD [address] [place] [phone] PCP - General Internal Medicine 03/14/24
--- OUTSIDE RECORDS SUMMARY | 2025-03-13 07:44 | XMS_ITS ---
Author Name [facility] Organization Unknown Care Team Organization Name Specialty Phone Email Start Date End Da te [facility] Maynor Arriola Primary Care 07/13/2022 12/25/2023 [facility] Lucita Castro Primary Care 03/15/2022 12/25/19 24
== END 2025-03-13 08:05 | disposition home or self-care (01) ==
LOC: HO.HPHYS 07:42
PROVIDERS: PCP Internal Medicine; Visit Provider Physical Medicine & Rehabilitation
DX: M53.3 Sacrococcygeal disorders, not elsewhere classified (principal); M54.16 Radiculopathy, lumbar region; M54.50 Low back pain, unspecified; G89.4 Chronic pain syndrome
CPT/HCPCS: 99214; G2211

== ENCOUNTER 2025-04-15 07:37 | Outpatient (AMB) | payer OTHER, MEDICAID, SELFPAY ==
--- NOTE | 2025-04-15 07:37 | A.PHYSOV ---
Vital Signs 04/15/25 07:38 Height 5 ft 6 in Weight 216 lb BMI 34.9 Intake Visit Reasons: 1M followup Intake Note: Patient is a 39 year old female in office today for a one month follow up visit on medications. Patient states gabapentin and hydrocodone aren't working. She feels the oxycodone worked better for her. Allergies No Known Allergies Allergy (Verified 04/15/25 07:38) HPI HPI 1M followup: Details: Patient returns for follow-up visit for persistent lower back pain. Pain is concentrated primarily on the left side. Her management up to this date included greater trochanteric bursa injections, SI joint injections with good but short-lived benefit. She ended up having left SI joint fusion in April 2024. She reported excellent pain relief of her symptoms for 1 month, unfortunately her pain returned. She has been on gabapentin 400 mg twice a day. She was recently prescribed hydrocodone. I spent some time reviewing our notes from our previous practice. Lumbosacral spine MRI was reviewed. MRI dated 09/22/2024. Small L5-S1 disc bulge was demonstrated. L4-L5 degenerative disc disease. Generally MRI was noncontributory. Most recently she received L5-S1 epidural injection on 01/10/2025 which provided excellent, but short-lived benefit. She has been having difficult time sleeping at night. She reports no side effects with gabapentin use. 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 He has to travel to [place] for her job twice a week. Hydrocodone has not worked as well as oxycodone. She has been very responsible with her pain medication use. Gabapentin has been increased to 600 mg in the morning and 1200 mg at nighttime. Procedures: Left GT bursa injection 08/25/2022 Left SI joint injection 09/30/2022 Bilateral L4-L5, L5-S1 facet joint injections 12/02/2022 Left SI joint injection 11/17/2023 L5-S1 CRESENCIO 01/10/2025 [facility] Medical History DDD (degenerative disc disease), lumbosacral Depression Orthostatic hypotension Palpitations GERD (gastroesophageal reflux disease) Sacroiliac joint dysfunction of left side Surgical History Hx of wisdom tooth extraction Hx of section Hx of gastric bypass Social History Are you a primary critical care unit nurse to a significant other at home: No Do you presently have visiting nurse or other home services: No Patient Tobacco Use Status: Never used Tobacco Review of Systems Narrative Lower back pain, denies change in bowel bladder habits, denies fever or chills, left knee pain, denies uncontrolled depression or suicidal ideation Physical Exam Exam Exam: Patient appears to be in no acute distress, appropriately conversant oriented. Her gait was antalgic on the left with a walker. Gait was slow. Lumbar extension was restricted. Dural tension signs were negative. SI provocative maneuvers were positive on the left side. Heel walk and toe walk were not tested. Neurological examination of lower extremities was nonfocal. Patient demonstrated no upper motor neuron signs. Palpatory examination reveals tenderness with palpation over bilateral sacroiliac sulci. Bilateral paraspinal tenderness. Vital Signs: BMI result Body Mass Index 34.9 Assessment & Plan Assessment & Plan (1) Sacroiliac joint dysfunction of left side: Code(s): M53.3 - Sacrococcygeal disorders, not elsewhere classified Category: Medical (2) Lumbar radiculopathy: Code(s): M54.16 - Radiculopathy, lumbar region Category: Medical Plan: See below (3) Chronic pain syndrome: Code(s): G89.4 - Chronic pain syndrome Category: Medical Plan: See below Plan See below Medications: New oxycodone-acetaminophen 5-325 mg Partial Fill upon patient request. 1 tab PO BID PRN 56 tabs 0RF pain 28 days G89.4 - Chronic pain syndrome, M53.3 - Sacrococcygeal disorders, not elsewhere classified, M54.16 - Radiculopathy, lumbar region Scribe Plan - Not visible on output: Treatment options were discussed with the patient. I do not recommend any interventional procedures at this time. We discussed use of narcotic medications. Today she will be contracted for use of oxycodone 5 mg twice a day as needed. She understand prescription monitoring routine she will be called for urine drug testing randomly and pill counts. She will continue with use of gabapentin. We discussed potential increased risk of dementia with ongoing use of gabapentin. Patient understands the risks. Gabapentin has been helping. She will follow up in 3 months or sooner if necessary. All questions were answered to her satisfaction. She will follow up with orthopedic surgery for her knee pain. Coding Level of Care Code Est Pt Level 4 (87774) Complex visit Add On G2211 Diagnoses Sacroiliac joint dysfunction of left side M53.3 Lumbar radiculopathy M54.16 Chronic pain syndrome G89.4
[2025-04-15 07:38] VITALS: BMI 34.9
== END 2025-04-15 07:51 | disposition home or self-care (01) ==
LOC: HO.HPHYS 07:37
PROVIDERS: PCP Internal Medicine; Visit Provider Physical Medicine & Rehabilitation
DX: M53.3 Sacrococcygeal disorders, not elsewhere classified (principal); M54.16 Radiculopathy, lumbar region; G89.4 Chronic pain syndrome
CPT/HCPCS: 99214; G2211